=== PATIENT | female | born 2000 | race Caucasian/White ===

== ENCOUNTER 2019-08-16 14:03 | Outpatient (CLI) | payer BC, SELFPAY ==
--- NOTE | ~2019-08-16 | US_ITS ---
US breast BI complete DATE: 08/16/2019 14:43 INDICATION: Patient feels lumps all over both breasts. TECHNIQUE: Real-time imaging of both complete breasts COMPARISON: None FINDINGS: No suspicious mass or shadowing of either breast is evident. No cysts are identified. IMPRESSION: BI-RADS Category 1: Negative Recommendation: Routine mammographic screening beginning at age 40 unless indicated earlier due to pa tient complaints, physical findings or breast cancer risk factors Reviewed, dictated and finalized at [facility]. Reviewed, dictated and finalized at location [facility]. IMPRESSION: BI-RADS Category 1: Negative Recommendation: Routine mammographic screening beginning at age 40 unless indic ated earlier due to patient complaints, physical findings or breast cancer risk factors
== END 2019-08-16 14:04 | disposition home or self-care (01) ==
PROVIDERS: PCP Obstetrics & Gynecology; Visit Provider Nurse Practitioner Obstetrics & Gynecology
DX: N63.0 Unspecified lump in unspecified breast (principal); N64.4 Mastodynia
CPT/HCPCS: 76641

== ENCOUNTER 2021-08-10 22:06 | Emergency (ER) | payer BC, SELFPAY | END 2021-08-10 23:14 | disposition left against medical advice (07) | PROVIDERS: PCP Obstetrics & Gynecology | DX: Z53.21 Procedure and treatment not carried out due to patient leaving prior to being seen by health care provider (principal) | CPT/HCPCS: 99199 ==

== ENCOUNTER 2022-03-29 09:01 | Outpatient (CLI) | payer BC, SELFPAY ==
--- NOTE | ~2022-03-29 | US_ITS ---
EXAMINATION: US OB transvaginal DATE: 03/29/2022 09:33 INDICATION: First trimester dating TECHNIQUE: Real-time pelvic transabdominal and transvaginal ultrasound was performed. COMPARISON: None. FINDINGS: The uterus measures 8.8 x 5.9 x 6 cm. There is an intrauterine gestational sac. A yolk sac is identified. heart motion is identified measuring 162 beats per minute (bpm) by M-mode Doppl er. The crown rump length measures 1.4 cm, which correlates with an estimated gestational age o f 7 weeks and 5 day(s) (+/-) 5 day(s). The left ovary is not visualized however no left adnexal abnormality is seen. The right ovary measure s 2.8 x 2.5 x 2 cm. There is normal vascular flow in the right ovary. There is no free fluid in the p sophia. IMPRESSION: 1. Live intrauterine with an estimated gestational age of 7 weeks and 5 day(s) (+/-) 5 day( s) and an estimated delivery date of 11/10/2022. Reviewed, dictated and finalized at location [facility]. [facility] IMPRESSION: 1. Live intrauterine with an estimated gestational age of 7 weeks and 5 day(s) (+/-) 5 day(s) and an estimated delivery date of 11/10/2022.
== END 2022-03-29 09:02 ==
PROVIDERS: PCP Family Medicine; Visit Provider Obstetrics & Gynecology Gynecology
DX: Z36.87 Encounter for antenatal screening for uncertain dates (principal); Z3A.01 Less than 8 weeks gestation of pregnancy
CPT/HCPCS: 76817

== ENCOUNTER 2022-06-04 12:06 | Emergency (ER) | payer OTHER, SELFPAY ==
[2022-06-04 12:16] VITALS: BP 122/70; PULSE 99; RESP 20; TEMP 36.4; O2SAT 100
--- NOTE | 2022-06-04 12:52 | ED.GENADULT ---
HPI - General Adult General Chief complaint: Upper Respiratory Infection Stated complaint: Cough Time Seen by Provider: 06/04/22 12:35 History of Present Illness HPI narrative: Patient is a 22-year-old female who presents ER with concerns for COVID. She has had runny nose with cough for the last week. Associate with sore throat. Her son has had similar symptoms. They found out that a close contact of theirs at daycare who gives her child rides is COVID-positive so no other nervous about having COVID. Patient has not been vaccinated for COVID-19. She is unsure if she is ever had it as she has not tested herself. No fevers or chills. Occasional posttussive emesis. Patient is 18 weeks and is seen by the [facility]. She has had no complications with her . No lower abdominal pain or vaginal bleeding. No urinary symptoms. Related Data Home Medications Medication Instructions Recorded Confirmed ferrous sulfate 325 mg (65 mg 325 mg PO DAILY 02/01/21 02/01/21 iron) tablet (Feosol) Allergies Allergy/AdvReac Type Severity Reaction Status Date / Time No Known Allergies Allergy Verified 06/04/22 12:36 Review of Systems Constitutional: Constitutional: Denies chills and Denies fever(s) ENT: Reports nasal congestion and Reports sore throat Respiratory: Respiratory: Reports cough, Denies dyspnea and Denies wheezing Gastrointestinal: Gastrointestinal: Denies abdominal pain, Denies nausea and Denies vomiting Comments: Positive posttussive emesis Genitourinary: Genitourinary: Denies abnormal vaginal bleeding, Denies nocturia and Denies dysuria [facility] Past Medical History Medical History (Updated 06/04/22 @ 13:33 by Darien Beard MD) Anemia BMI 27.0-27.9,adult Bruising tendency Encounter to establish care Tobacco abuse Social History Social History (System 05/24/21 @ 12:29 by Estela Jordan) Smoking packs per day: 0.5 Smoking cigarettes per day: 10.0 Years smoked: 1 Smoking pack-years: 0.50 Smoking status: Current every day smoker Tobacco type: cigarettes Alcohol intake: current Substance use: never Substance use type: does not use Exam Narrative: GENERAL: Well-appearing, well-nourished, and in no acute distress. HEAD: Normocephalic, atraumatic. EYES: PERRL and EOMI. ENT: Mucous membranes moist. Normal-appearing posterior oropharynx without erythema, tonsillar hypertrophy, or uvular shift. TMs normal bilaterally and ear canals free of cerumen. NECK: Supple. EXTREMITIES: Normal range of motion. No edema. NEURO: Alert and oriented x3. PSYCH: Normal mood and affect. Course Course Emergency Course: Patient resting comfortably. Informed of results. Discharge home. Vital Signs Vital signs: Vital Signs Temperature 97.6 F 06/04/22 12:16 Pulse Rate 99 06/04/22 12:16 Respiratory Rate 20 06/04/22 12:16 Blood Pressure 122/70 06/04/22 12:16 Pulse Oximetry 100 06/04/22 12:16 Oxygen Delivery Room Air 06/04/22 12:16 Temperature 97.6 F 06/04/22 12:16 Pulse Rate 99 06/04/22 12:16 Respiratory Rate 20 06/04/22 12:16 Blood Pressure 122/70 06/04/22 12:16 Pulse Oximetry 100 06/04/22 12:16 Oxygen Delivery Room Air 06/04/22 12:38 Medical Decision Making Vital Signs Vital Signs: Vital Signs Temperature 97.6 F 06/04/22 12:16 Pulse Rate 99 06/04/22 12:16 Respiratory Rate 20 06/04/22 12:16 Blood Pressure 122/70 06/04/22 12:16 Pulse Oximetry 100 06/04/22 12:16 Oxygen Delivery Room Air 06/04/22 12:16 Temperature 97.6 F 06/04/22 12:16 Pulse Rate 99 06/04/22 12:16 Respiratory Rate 20 06/04/22 12:16 Blood Pressure 122/70 06/04/22 12:16 Pulse Oximetry 100 06/04/22 12:16 Oxygen Delivery Room Air 06/04/22 12:38 Lab Data Labs: Lab Results 06/04/22 Range/Units 12:21 Influenza A (RT-PCR) Negative (Negative) Influenza B (RT-PCR) Negative (Negative)
[2022-06-04 13:24] LABS: Influenza A QL RT-PCR Negative (Negative); Influenza B QL RT-PCR Negative (Negative); SARS-CoV-2 RNA PCR Negative
[2022-06-04 14:08] VITALS: BP 115/72; PULSE 91; RESP 16; O2SAT 100
== END 2022-06-04 14:08 | disposition home or self-care (01) ==
PROVIDERS: General Practice; Emergency Provider Emergency Medicine; PCP Family Medicine
DX: J06.9 Acute upper respiratory infection, unspecified (principal); D64.9 Anemia, unspecified; F17.210 Nicotine dependence, cigarettes, uncomplicated; Z20.822 Contact with and (suspected) exposure to COVID-19
CPT/HCPCS: 87636; 99283

== ENCOUNTER 2022-06-11 08:40 | Observation (INO) | payer BC, OTHER, SELFPAY ==
[2022-06-11 09:02] VITALS: BP 111/70; PULSE 93
[2022-06-11 09:16] VITALS: BP 90/42; PULSE 89
[2022-06-11 10:20] LABS: Appearance Urine Turbid (Clear); Bacteria Urine 3+ /hpf; Bilirubin Urine Negative (Negative); Blood Urine Negative (Negative); Color Urine Dark Yellow (Yellow); Glucose Urine UA Negative (Negative); Ketones Urine Trace mg/dL (Negative); Leukocyte Esterase Ur Trace LEU/UL (Negative); Need Manual Microscopic Reviewed; Nitrate Urine Negative (Negative); Protein Urine 1+ mg/dL (Negative); Specific Grav Ur 1.024 (1.001-1.035); Squamous Epithelial Cell Urine Many /hpf (Few); WBC Urine 21-50 /hpf; pH Urine 6.5 (5.0-9.0)
[2022-06-11 10:28] LABS: Add Urine Microscopic? YES
[2022-06-11 10:55] VITALS: TEMP 36.2
[2022-06-11] MEDS: cefTRIAXone 1 GM VIAL IM (11:35)
--- NOTE | 2022-07-04 08:32 | PM.OBTRLD ---
OB - Triage/Final Diagnosis Visit Information Comments/Additional reasons for admission: I have assessed the risk for this patient, Guillermina Ferrera, and determined that she would benefit from observation care. Evaluation Laboratory results: Laboratory Tests 06/11/22 09:26 Urine Color Dark yellow Urine Appearance Turbid H Urine pH 6.5 Ur Specific [place] 1.024 Urine Protein 1+ H Urine Glucose (UA) Negative Urine Ketones Trace Ur Blood (Man) Negative Urine Nitrate Negative Urine Bilirubin Negative Urine Urobilinogen 1.0 Add Ur Microanalysis Reviewed Leukocyte Esterase Rfl Trace H Urine RBC 3-5 H Urine WBC 21-50 Ur Squamous Epith Cells Many H Urine Bacteria 3+ H Urine Casts 11-20 Final Diagnosis (1) False labor: Code(s): O47.9 - False labor, unspecified Status: Acute
== END 2022-06-11 11:55 | disposition home or self-care (01) ==
PROVIDERS: Admitting Provider Obstetrics & Gynecology; PCP Family Medicine; Visit Provider Obstetrics & Gynecology
DX: O47.02 False labor before 37 completed weeks of gestation, second trimester (principal); O26.892 Other specified pregnancy related conditions, second trimester; R10.9 Unspecified abdominal pain; Z3A.19 19 weeks gestation of pregnancy
CPT/HCPCS: 81001; 87086; 96372; G0378; G0379; J0696

== ENCOUNTER 2022-10-04 20:17 | Observation (INO) | payer OTHER, SELFPAY ==
[2022-10-04 20:33] VITALS: BP 121/70; PULSE 98
[2022-10-04 20:50] LABS: Appearance Urine Cloudy (Clear); Bacteria Urine 1+ /hpf; Bilirubin Urine Negative (Negative); Blood Urine Negative (Negative); Color Urine Dark Yellow (Yellow); Glucose Urine UA Negative (Negative); Ketones Urine Trace mg/dL (Negative); Leukocyte Esterase Ur Negative LEU/UL (Negative); Nitrate Urine Negative (Negative); Non Pathogenic Casts 0-2; Protein Urine Trace mg/dL (Negative); RBC Urine 0-2 /hpf (0-2); Specific Grav Ur 1.024 (1.001-1.035); Squamous Epithelial Cell Urine Many /hpf (Few); WBC Urine 0-5 /hpf
[2022-10-04 20:56] LABS: Add Urine Microscopic? YES
[2022-10-04 21:10] VITALS: BMI 36.1
--- NOTE | 2022-10-04 21:10 | OBADM ---
This patient, Guillermina Ferrera, admitted to the OB room OB Post 115 for observation. Patient/family oriented to hospital policies and general routines including ID bracelet, bed and alarms, visiting hours, pain management, procedures, bathroom and other care routines, personal items, smoking policy, room service/diet, and visiting hours. Patient/Family are encouraged to report perceived risks to care and to ask questions if they do not understand what they are told or what they should do.
--- NOTE | 2022-11-03 18:24 | P.PNOB_ITS ---
OB - Triage/Final Diagnosis Visit Information Comments/Additional reasons for admission: I have assessed the risk for this patient, Guillermina Ferrera, and determined that she would benefit from observation care. Evaluation Laboratory results: Laboratory Tests 10/04/22 20:39 Urine Color Dark yellow Urine Appearance Cloudy H Urine pH 6.0 Ur Specific [place] 1.024 Urine Protein Trace Urine Glucose (UA) Negative Urine Ketones Trace H Ur Blood (Man) Negative Urine Nitrate Negative Urine Bilirubin Negative Urine Urobilinogen 1.0 Leukocyte Esterase Rfl Negative Urine RBC 0-2 Urine WBC 0-5 Ur Squamous Epith Cells Many H Urine Bacteria 1+ H Urine Casts 0-2 Final Diagnosis (1) False labor: Code(s): O47.9 - False labor, unspecified Status: Acute
== END 2022-10-04 21:15 | disposition home or self-care (01) ==
PROVIDERS: Admitting Provider Obstetrics & Gynecology; PCP Family Medicine; Visit Provider Obstetrics & Gynecology
DX: O47.03 False labor before 37 completed weeks of gestation, third trimester (principal); Z3A.35 35 weeks gestation of pregnancy
CPT/HCPCS: 81001; G0378; G0379

== ENCOUNTER 2022-10-24 23:22 | Inpatient (IN) | payer OTHER, SELFPAY ==
[2022-10-25] VITALS (50 sets, daily range): BP systolic 88–132; BP diastolic 51–95; PULSE 63–107; RESP 12–18; TEMP 36.3–37.1; O2SAT 86–100; BMI 37.9
--- NOTE | 2022-10-25 00:38 | LDADM ---
This patient, Guillermina Ferrera, was admitted to Labor/Delivery/Recovery 105 on 10/24/22 at 23:22. Plans for labor, pain management and were discussed with patient. Patient/family oriented to hospital policies and general routines including ID bracelet, bed and alarms, visiting hours, pain management, procedures, bathroom and other care routines, personal items, smoking policy, room service/diet and guest tray routines, infant security routines, and visiting hours. Patient/Family are encouraged to report perceived risks to care and to ask questions if they do not understand what they are told or what they should do. See OBIX for further documentation.
[2022-10-25 02:42] LABS: Basophils Absolute Auto 0.1 K/mm3 (0.0-0.1); Basophils Percent Auto 0.4 % (0.2-1.2); Eosinophils Absolute Auto 0.1 K/mm3 (0-0.3); Eosinophils Percent Auto 0.6 % (0-4.4); Hematocrit 30.3 % (37.0-47.0); Hemoglobin 9.7 g/dL (12.0-15.0); Immature Granulocyte Absolute 0.09 K/mm3 (0.00-0.031); Immature Granulocyte Percent A 0.8 % (0-0.5); Lymphocytes Absolute Auto 3.03 K/mm3 (0.9-3.2); Lymphocytes Percent Auto 25.9 % (18.3-44.2); Mean Corpuscular Hemoglobin 24.8 pg (26-34); Mean Corpuscular Volume 77.5 fl (80-100); Mean Platelet Volume 10.9 fl (7.4-10.4); Monocytes Absolute Auto 0.6 K/mm3 (0.1-0.6); Monocytes Percent Auto 5.5 % (2.6-8.5); Neutrophils Absolute Auto 7.8 K/mm3 (1.3-6.7); Neutrophils Percent Auto 66.8 % (45.5-73.1); Platelet Count Result 331 k/mm3 (150-375); Red Blood Count 3.91 M/mm3 (4.2-5.4); Red Cell Distribution Width 14.1 % (11.5-14.5); White Blood Count 11.7 K/mm3 (4.5-10.0)
[2022-10-25 02:46] LABS: HIV 1/2 Ab P24 Ag Result Negative (Negative)
[2022-10-25] MEDS: LACTATED RINGERS 1,000 ML 125 ML IV CONT (04:13)
[2022-10-25] MEDS: OXYTOCIN 30 UNITS/NS 500 ML 30 UNITS/500 ML BAG IV CONT (04:14)
[2022-10-25 04:20] LABS: Hepatitis B Surface Antigen Negative (Negative)
[2022-10-25] MEDS: ACETAMINOPHEN 500 MG TABLET 1000 MG PO (09:56)
--- NOTE | 2022-10-25 10:29 | WPDANESEPPF ---
Anes - Initial Pre Proc Eval Procedure: Operation Date: 10/25/22 11:00 Proposed Procedures p Section - Helene Handy MD Date/Time: 10/25/22 10:29 Surgeon: Helene Handy MD Pre Op Diagnosis: Leaking Fluid Patient Data Age: 22 Gender: F Height: 1.57 m Weight: 94 kg Last Vital Signs Temp 36.6 C 10/25/22 07:00 Pulse 92 10/25/22 09:25 BP 109/69 10/25/22 09:25 O2 Del Method Room Air 10/25/22 00:36 Allergies Allergy/AdvReac Type Severity Reaction Status Date / Time No Known Allergies Allergy Verified 06/04/22 12:36 Home Medications Medication Instructions Recorded Confirmed Type ferrous sulfate 325 mg (65 mg 325 mg PO DAILY 02/01/21 10/25/22 History iron) tablet (Feosol) Laboratory Tests 10/25/22 10/25/22 10/25/22 01:31 02:36 08:04 WBC 11.7 H K/mm3 (4.5-10.0) RBC 3.91 L M/mm3 (4.2-5.4) Hgb 9.7 L g/dL (12.0-15.0) Hct 30.3 L % (37.0-47.0) MCV 77.5 L fl (80-100) MCH 24.8 L pg (26-34) MCHC 32.0 g/dl (32-36) RDW 14.1 % (11.5-14.5) Plt Count 331 k/mm3 (150-375) MPV 10.9 H fl (7.4-10.4) Immature Gran % (Auto) 0.8 H % (0-0.5) Neut % (Auto) 66.8 % (45.5-73.1) Lymph % (Auto) 25.9 % (18.3-44.2) [place] % (Auto) 5.5 % (2.6-8.5) Eos % (Auto) 0.6 % (0-4.4) Baso % (Auto) 0.4 % (0.2-1.2) Lymph # (Auto) 3.03 K/mm3 (0.9-3.2) [place] # (Auto) 0.6 K/mm3 (0.1-0.6) Eos # (Auto) 0.1 K/mm3 (0-0.3) Baso # (Auto) 0.1 K/mm3 (0.0-0.1) Abs Immat Gran (auto) 0.09 H K/mm3 (0.00-0.031) Absolute Neuts (auto) 7.8 H K/mm3 (1.3-6.7) Absolute Nucleated RBC 0.0 K/mm3 (0.0-0.012) Nucleated RBC % 0.0 % (0.0-0.2) RPR Pending Hep Bs Antigen Negative (Negative) HIV 1&2 Ab/P24 Ag 4thGn Negative (Negative) Rubella IgG Antibody 9.0 L IU/ML (10 - ) Blood Type B Positive Antibody Screen Negative Patient hx anesthesia problems: none Family hx anesthesia problems: none Results Review: All pre-operative results and documents have been reviewed as part of the pre-operative evaluation. [facility] Past Medical History Medical History (Updated 07/04/22 @ 08:32 by Helene Handy MD) Anemia BMI 27.0-27.9,adult Bruising tendency Encounter to establish care Tobacco abuse Social History Social History (System 05/24/21 @ 12:29 by Estela Jordan) Smoking packs per day: 0.5 Smoking cigarettes per day: 10.0 Years smoked: 1 Smoking pack-years: 0.50 Smoking status: Former smoker Tobacco type: cigarettes Alcohol intake: current Substance use: never Substance use type: does not use Lack of Transportation: No Lack of Food: Never True Current Housing: I Have Housing Concerned About Future Housing: No Difficulty Paying Gas/Electric Bills: No Difficulty Paying for Meds: No Currently Unemployed: No Education: High School Diploma/GED Difficulty w/ Childcare or Family Care: No Spiritual care concerns: No Anes - Eval Final PreProcedure Day of Procedure 10/25/22 10:29 Patient weight: obese Heart: regular rate and rhythm Lungs: clear to auscultation and normal air movement Airway: Mallampati scale class II Neurological: alert and oriented Last oral intake: >/= 8 hours ASA classification: II Emergent: no Anesthetic plan: proceed Anesthesia type and monitoring: regional spinal and standard monitoring Results Review: All pre-operative results and documents have been reviewed as part of the pre-operative evaluation. Informed Consent: The patient's anesthetic plan and its attendant risks and benefits were discussed with the patient/family/POA. Questions were solicited and answers provided to the satisfaction of the patient/
[2022-10-25 11:02] LABS: Rapid Plasma Reagin Non-Reactive (NonReactive)
--- NOTE | 2022-10-25 11:53 | WPDHPUPDATE1 ---
History and Physical Update Update Date/Time: 10/25/22 11:53 History and Physical has been reviewed, including an updated exam of the patient. There are NO changes in the patient's condition. Risks, benefits, and alternatives have been discussed and questions answered. Patient agrees to proceed with procedure.
--- NOTE | 2022-10-25 11:54 | PM.IMHP ---
H&P: [facility] History of Present Illness Date/Time: 10/25/22 11:54 Chief Complaint: Term Narrative: this patient is a 22-year-old female with a previous delivery and a term gestation with ruptured membranes. Agreed to perform repeat delivery. She understands the procedure. She understands the risks. She understands that injuries may occur that result in hospitalization, more surgery, and severe illness. She understands there is chance of hemorrhage and infection. She denies any nausea, vomiting, fever, chills. She denies any chest pain or shortness of breath. Review of Systems Review of Systems: All systems reviewed & are unremarkable except as noted in HPI and below Constitutional: Constitutional: Denies chills, Denies fatigue, Denies fever(s) and Denies weakness Eyes: Eyes: Denies blurry vision, Denies change in vision, Denies loss of peripheral vision, Denies loss of vision, Denies other visual disturbances and Denies eye pain ENT: Denies vertigo, Denies dizziness, Denies hearing loss, Denies mouth pain, Denies nasal obstruction, Denies neck mass and Denies neck pain Cardiovascular: Cardiovascular: Denies chest pain, Denies diaphoresis, Denies syncope, Denies leg edema and Denies dyspnea Respiratory: Respiratory: Denies chest congestion, Denies cough, Denies hemoptysis, Denies dyspnea and Denies wheezing Gastrointestinal: Gastrointestinal: Denies abdominal pain, Denies constipation, Denies diarrhea, Denies nausea and Denies vomiting Genitourinary: Genitourinary: Denies hematuria, Denies change in libido, Denies nocturia, Denies genital lesions, Denies flank pain and Denies urinary urgency Musculoskeletal: Musculoskeletal: Denies abnormal gait, Denies back pain, Denies myalgias, Denies arthralgias, Denies joint swelling, Denies muscle weakness and Denies neck pain Integumentary/Breasts: Skin/Breast: Denies swelling, Denies breast pain, Denies breast mass, Denies dry skin, Denies nipple discharge, Denies unusual bruising and Denies jaundice Neurologic: Denies Neuro-related abnormal movements, Denies Abnormal speech present, Denies abnormal gait, Denies behavioral changes, Denies confusion, Denies vertigo, Denies dizziness, Denies syncope, Denies loss of vision, Denies memory loss, Denies convulsions and Denies weakness Psychiatric: Psychiatric: Denies abnormal sleep pattern, Denies behavioral changes, Denies change in libido, Denies confusion, Denies depression, Denies anhedonia and Denies memory loss Endocrine: Endocrine: Reports no additional endocrine complaints, Denies change in libido and Denies fatigue Hematologic/Lymphatic: Hematologic/Lymphatic: Reports no additional hematologic/lymphatic complaints Allergic/Immunologic: Allergic/Immunologic: Reports no additional allergic/immunologic complaints and Denies wheezing PMFSH Past Medical History Medical History (Updated 10/25/22 @ 11:56 by Helene Handy MD) Anemia BMI 27.0-27.9,adult Bruising tendency Encounter to establish care Tobacco abuse Social History Social History (System 05/24/21 @ 12:29 by Estela Jordan) Smoking packs per day: 0.5 Smoking cigarettes per day: 10.0 Years smoked: 1 Smoking pack-years: 0.50 Smoking status: Former smoker Tobacco type: cigarettes Alcohol intake: current Substance use: never Substance use type: does not use Lack of Transportation: No Lack of Food: Never True Current Housing: I Have Housing Concerned About Future Housing: No Difficulty Paying Gas/Electric Bills: No Difficulty Paying for Meds: No Currently Unemployed: No Education: High School Diploma/GED Difficulty w/ Childcare or Family Care: No Spiritual care concerns: No Meds Home Medications and Allergies Home Medications Medication Instructions Recorded Confirmed Type ferrous sulfate 325 mg (65 mg 325 mg PO DAILY 02/01/21 10/25/22 History iron) tablet (Feosol) Allergies Allergy/
[2022-10-25] MEDS: ceFAZolin 2 GM/D5W 50 ML 2 GM/50 ML BAG IVPB (11:55)
--- NOTE | 2022-10-25 12:47 | WPDHPUPDATE1 ---
History and Physical Update Update Date/Time: 10/25/22 12:47 History and Physical has been reviewed, including an updated exam of the patient. There are NO changes in the patient's condition. Risks, benefits, and alternatives have been discussed and questions answered. Patient agrees to proceed with procedure.
--- NOTE | 2022-10-25 12:54 | W.PM.PROC2 ---
Procedure Note - Detailed Date of Procedure 10/25/22 Pre-op Diagnosis Leaking Fluid, previous Post-op Diagnosis Same Procedure Performed Low-transverse section Surgeon Helene Handy MD Anesthesia Spinal Findings Normal gestational maternal anatomy, average size , normal Apgars. Description of Procedure The patient was taken the operating room. She was prepped and draped in dorsal supine position with a leftward tilt. This was done after spinal anesthetic was applied. A low-transverse skin incision was made and carried down till of the fascia with the knife. The fascial incision was made with the knife. The fascial incision was extended laterally with [place] scissors. The fascia was tented upward superiorly and inferiorly the rectus muscles were dissected off bluntly. The rectus muscles were the midline. The preperitoneal fat and peritoneum were dissected open bluntly at the superior aspect of the rectus muscles. The peritoneal incision was extended superior and inferior with good position of bladder. The uterine incision was made with a scalpel down to the level of the amniotic cavity. The amniotic cavity was entered bluntly. The was delivered. The cord was clamped and cut and the was handed off to waiting pediatric staff. Cord bloods were obtained. The placenta was removed manually. The uterus was exteriorized. The uterus was cleared of all clots, debris and membranes. The uterus was closed in 0 Vicryl running lock fashion. An imbricating over a was placed along the incision line as well. The uterus was returned to the abdomen. The gutters were cleared of all clots and debris. The fascia was closed with 0 Vicryl running fashion. The subcutaneous tissue was irrigated pinpoint bleeders were cauterized. The skin was closed with subcuticular absorbable adams. The skin incision line was covered with glue. The patient tolerated the procedure well. She has taken recovery room in stable condition. Sponge lap and needle counts were correct x2. Estimated Blood Loss 410 Complications No immediate complications Condition Stable Disposition PACU
[2022-10-25] MEDS: DOCUSATE SODIUM 100 MG CAPSULE PO (17:47)
[2022-10-25] MEDS: HYDROcodone/acetaminophen (*CRX) 5-325 MG TABLET 1 TAB PO (17:48)
[2022-10-25] MEDS: DEXTROSE 5%/0.45% SOD CHL 1,000 ML 125 ML IV CONT (17:48)
[2022-10-25] MEDS: KETOROLAC 30 MG/ML VIAL (*BKC) IV PUSH (19:58)
[2022-10-26 00:30] VITALS: BP 102/61; PULSE 76; RESP 15; TEMP 36.6; O2SAT 99
[2022-10-26] MEDS: ACETAMINOPHEN 325 MG TABLET 650 MG PO ×3 (04:01→16:43)
[2022-10-26] MEDS: IBUPROFEN 600 MG TABLET PO ×4 (04:01→23:45)
[2022-10-26 04:27] VITALS: BP 127/77; PULSE 80; RESP 18; TEMP 36.7; O2SAT 100
[2022-10-26 05:28] LABS: Basophils Percent Auto 0.3 % (0.2-1.2); Eosinophils Percent Auto 0.3 % (0-4.4); Hemoglobin 8.4 g/dL (12.0-15.0); Immature Granulocyte Absolute 0.08 K/mm3 (0.00-0.031); Immature Granulocyte Percent A 0.7 % (0-0.5); Lymphocytes Absolute Auto 3.08 K/mm3 (0.9-3.2); Lymphocytes Percent Auto 25.1 % (18.3-44.2); Mean Corpuscular Hemoglobin 23.4 pg (26-34); Mean Platelet Volume 10.3 fl (7.4-10.4); Monocytes Absolute Auto 0.8 K/mm3 (0.1-0.6); Monocytes Percent Auto 6.1 % (2.6-8.5); Neutrophils Absolute Auto 8.3 K/mm3 (1.3-6.7); Neutrophils Percent Auto 67.5 % (45.5-73.1); Platelet Count Result 252 k/mm3 (150-375); Red Blood Count 3.59 M/mm3 (4.2-5.4); Red Cell Distribution Width 13.2 % (11.5-14.5); White Blood Count 12.3 K/mm3 (4.5-10.0)
[2022-10-26 08:00] VITALS: BP 122/63; PULSE 73; RESP 18; TEMP 36.8
--- NOTE | 2022-10-26 09:17 | P.PNOB_ITS ---
OB - PN: Subj Subjective Date/time seen: 10/26/22 09:17 Patient comments: no complaints baby status: doing well and nursing well Narrative: POD 1 from primary CS. Doing well. Normal lochia. Eating, ambulating, judd out. OB - PN: Obj Data Labs 10/26/22 03:47 Labs: Laboratory Results - last 24 hr 10/25/22 10/25/22 10/26/22 01:31 08:04 03:47 WBC 12.3 H RBC 3.59 L Hgb 8.4 L Hct 28.0 L MCV 78.0 L MCH 23.4 L D MCHC 30.0 L RDW 13.2 Plt Count 252 MPV 10.3 Immature Gran % (Auto) 0.7 H Neut % (Auto) 67.5 Lymph % (Auto) 25.1 [place] % (Auto) 6.1 Eos % (Auto) 0.3 Baso % (Auto) 0.3 Lymph # (Auto) 3.08 [place] # (Auto) 0.8 H Eos # (Auto) 0.0 Baso # (Auto) 0.0 Abs Immat Gran (auto) 0.08 H Absolute Neuts (auto) 8.3 H Absolute Nucleated RBC 0.0 Nucleated RBC % 0.0 RPR Non-reactive Antibody Screen Negative OB - PN A/P Plan day: 1 Plan: routine care Comments: consented for circumcision Time Spent With Patient Time: Total time spent is greater than 50% in coordination of care (as documented) at patient's floor/unit and/or counseling patient: Exam Narrative: NAD abdomen soft, appropriately tender, incision bandaged Extremities nontender with 1+ edema
[2022-10-26] MEDS: POLYSACCHARIDE IRON COMPLEX 150 MG CAPSULE PO ×2 (10:00→16:43)
[2022-10-26] MEDS: DOCUSATE SODIUM 100 MG CAPSULE PO ×2 (10:02→16:43)
[2022-10-26] MEDS: MULTIVIT/MIN/PREN/FOL AC/IRON TABLET 1 TAB PO (10:04)
--- NOTE | 2022-10-26 14:39 | WPDANLDPN2 ---
Anes-Prog Note L&D Date/Time: 10/26/22 14:39 Comfortable throughout: section Neuraxial method: spinal Epidural/Spinal procedure site: clean & non-tender Neuro status: Neuro function grossly intact. Cardiovascular status: normal Respiratory status: normal Airway patency: baseline Mental status: baseline Post-Op hydration status: normal Vital Signs: Last Vital Signs Temp 98.3 F 10/26/22 08:00 Pulse 73 10/26/22 08:00 Resp 18 10/26/22 08:00 BP 122/63 10/26/22 08:00 Pulse Ox 100 10/26/22 04:27 O2 Del Method Room Air 10/26/22 04:27 Pain score (VAS): 2 I/O: Intake & Output 10/25/22 10/26/22 10/26/22 23:59 07:59 15:59 Intake Total 1500 Output Total 100 2400 750 Balance -100 -900 -750 Post-procedural complaints: none Patient feedback: Patient satisfied with anesthetic care.
--- NOTE | 2022-10-26 14:39 | WPDANLDNPN2 ---
Anes-Prog Note L&D-Neuraxial Date/Time: 10/26/22 14:39 Neuraxial medications: intrathecal PF morphine Opiod-related complaints: none Patient feedback: Patient satisfied with post-operative pain management.
[2022-10-26 19:44] VITALS: BP 126/80; PULSE 76; RESP 18; TEMP 36.8; O2SAT 99
[2022-10-26] MEDS: HYDROcodone/acetaminophen (*CRX) 5-325 MG TABLET 1 TAB PO ×2 (20:12→23:45)
[2022-10-27] MEDS: HYDROcodone/acetaminophen (*CRX) 5-325 MG TABLET 1 TAB PO ×3 (02:54→11:32)
[2022-10-27] MEDS: IBUPROFEN 600 MG TABLET PO (07:15)
[2022-10-27] MEDS: DOCUSATE SODIUM 100 MG CAPSULE PO (07:15)
[2022-10-27] MEDS: POLYSACCHARIDE IRON COMPLEX 150 MG CAPSULE PO (07:15)
[2022-10-27 08:30] VITALS: BP 117/81; PULSE 80; RESP 14; TEMP 36.5; O2SAT 100
--- NOTE | 2022-10-27 10:08 | PM.OBPNVD ---
OB - PN: Subj Subjective Date/time seen: 10/27/22 10:08 Patient comments: no complaints and pain well controlled baby status: doing well and nursing well Narrative: woudl like DC home today OB - PN: Obj Data Labs 10/26/22 03:47 OB - PN A/P Time Spent With Patient Time: Total time spent is greater than 50% in coordination of care (as documented) at patient's floor/unit and/or counseling patient: Exam Narrative: NAD abdomen soft, appropriately tender, incision CDI Extremities nontender with 1+ edema
--- NOTE | 2022-10-27 10:12 | PM.OBDSVD ---
DS: Admitting Diagnosis Discharge Date 10/27/22 Admitting Diagnosis term IUP, prior CS DS: Discharge Diagnosis Discharge Diagnosis (1) delivery delivered: Code(s): O82 - Encounter for delivery without indication Status: Acute OB - DS: Summary Hospital Course Hospital Course: Guillermina was admitted with SROM. She planned a TOLAC but then changed her mind and desired a repeat CS. Her delivery and course were uncomplicated and she was discharged home on POD 2 in stable condition. OB Procedures : Ultrasound OB Procedures Intrapartum: OB Procedures: : None Peripartum Data Delivery Method: Section Procedures: Procedures Operation Date: 10/25/22 11:00 Actual Procedure Side Surgeon p Section Bilateral Helene Handy MD repeat low transverse section complications: none Status at Discharge Functional status at discharge: independent ambulation Time Spent with Patient Time attestation: Total time spent providing and/or coordinating discharge services: Exam Narrative: NAD abdomen soft, appropriately tender, incision CDI Discharge Plan Discharge Attending physician on discharge: Bethanie Yo Discharging Clinician: Bethanie Yo Anticipated Discharge Date/Time: 10/27/22 10:09 Patient Disposition: Home, Self-Care Activity: may shower, may drive after 2 weeks and pelvic rest Diet: regular Patient Instructions: Antibiotic Form Stand Alone Forms: General Discharge Information Follow-up/Referrals: Helene Handy MD [Physician] - 1 Week Bethanie Yo MD [Physician] - Discharge Medications: New oxycodone-acetaminophen 5-325 mg tablet 1 tablet PO Q4-6H PRN (Reason: pain) Qty: 30 0RF ibuprofen 600 mg Tablet 600 mg PO Q6H PRN (Reason: Cramping) Qty: 60 0RF docusate sodium 100 mg Capsule 100 mg PO BID PRN (Reason: constipation) Qty: 60 0RF Continued ferrous sulfate [Feosol] 325 mg (65 mg iron) tablet 325 mg PO DAILY Date of admission: 10/24/22 23:22 Primary Care Provider: Glenn Abraham Admitting Provider: Helene Handy Attending physician on admission: Helene Handy Condition: Stable
[2022-10-27] MEDS: MEASLES,MUMPS,RUBELLA VACCINE 0.5 ML VIAL SUB-Q (11:33)
[2022-10-28 16:03] VITALS: BP 139/79; PULSE 98; RESP 18; TEMP 37.3; O2SAT 99
== END 2022-10-27 14:54 | disposition home or self-care (01) | DRG 540 ==
LOC: ANHOB2 10-27 10:55 → ANHLDR 10-29 08:21 → ANHOB2 10-29 08:21
PROVIDERS: Admitting Provider Obstetrics & Gynecology; PCP Family Medicine; Visit Provider Obstetrics & Gynecology
PROC: 10D00Z1 Extraction of Products of Conception, Low, Open Approach (ICD-10-PCS; CPT 59514; principal; 2022-10-25 11:00)
DX: O34.219 Maternal care for unspecified type scar from previous cesarean delivery (principal); Z37.0 Single live birth; Z87.891 Personal history of nicotine dependence; Z3A.38 38 weeks gestation of pregnancy
CPT/HCPCS: 36415; 85025; 86592; 86703; 86762; 86850; 86900; 86901; 87340; 90710; A9270; G0432; J0690; J1885; J2274; J2590; J7120

== ENCOUNTER 2023-01-26 15:49 | Emergency (ER) | payer OTHER, SELFPAY ==
[2023-01-26 15:51] VITALS: BP 149/79; PULSE 79; RESP 20; TEMP 36.6; O2SAT 100
[2023-01-26 17:06] VITALS: BP 126/81; PULSE 72; RESP 18; O2SAT 100
[2023-01-26 17:15] LABS: Appearance Urine Cloudy (Clear); Bacteria Urine None Seen /hpf; Bilirubin Urine Negative (Negative); Blood Urine Negative (Negative); Color Urine Yellow (Yellow); Glucose Urine UA Negative (Negative); Ketones Urine Negative (Negative); Leukocyte Esterase Ur Negative LEU/UL (Negative); Nitrate Urine Negative (Negative); Non Pathogenic Casts 0-2; Protein Urine Negative (Negative); RBC Urine 0-2 /hpf (0-2); Squamous Epithelial Cell Urine Few /hpf (Few); WBC Urine 0-5 /hpf; pH Urine 7.5 (5.0-9.0)
--- NOTE | 2023-01-26 17:17 | ED.GENADULT ---
HPI - General Adult General Chief complaint: Abdominal Pain Stated complaint: abd carmping Time Seen by Provider: 01/26/23 16:08 History of Present Illness HPI narrative: Patient is a 22-year-old female who presents ER with abdominal pain/cramping. Began in the lower abdomen. Radiated upwards and into the back. Associate with nausea. No vomiting. No fevers chills or sweats. Denies urinary symptoms. No history of kidney stone. She has had no diarrhea. Related Data Home Medications Medication Instructions Recorded Confirmed ferrous sulfate 325 mg (65 mg 325 mg PO DAILY 02/01/21 10/25/22 iron) tablet (Feosol) Allergies Allergy/AdvReac Type Severity Reaction Status Date / Time No Known Allergies Allergy Verified 06/04/22 12:36 Review of Systems Review of Systems: All systems reviewed & are unremarkable except as noted in HPI and below Constitutional: Constitutional: Denies chills, Denies fatigue and Denies fever(s) ENT: Denies nasal congestion and Denies sore throat Gastrointestinal: Gastrointestinal: Reports abdominal pain, Denies heartburn, Denies diarrhea, Reports nausea and Denies vomiting Genitourinary: Genitourinary: Denies nocturia, Denies dysuria and Denies flank pain PMFSH Past Medical History Medical History (Updated 01/26/23 @ 18:26 by Darien Beard MD) Anemia BMI 27.0-27.9,adult Bruising tendency Encounter to establish care Tobacco abuse Social History Social History (System 05/24/21 @ 12:29 by Estela Jordan) Smoking packs per day: 0.5 Smoking cigarettes per day: 10.0 Years smoked: 1 Smoking pack-years: 0.50 Smoking status: Former smoker Tobacco type: cigarettes Alcohol intake: current Substance use: never Substance use type: does not use Lack of Transportation: No Lack of Food: Never True Current Housing: I Have Housing Concerned About Future Housing: No Difficulty Paying Gas/Electric Bills: No Difficulty Paying for Meds: No Currently Unemployed: No Education: High School Diploma/GED Difficulty w/ Childcare or Family Care: No Spiritual care concerns: No Exam Narrative: GENERAL: Well-appearing, well-nourished, and in no acute distress. HEAD: Normocephalic, atraumatic. ENT: Mucous membranes moist. CHEST: Clear to auscultation. No respiratory distress. HEART: Regular rate and rhythm. Normal peripheral pulses. ABDOMEN: Soft, nontender, nondistended. EXTREMITIES: Normal range of motion. No edema. SKIN: Warm, dry, no rash. NEURO: Alert and oriented x3. PSYCH: Normal mood and affect. Course Course Emergency Course: Patient resting comfortably. Abdominal exam benign. Lab results reassuring. Discharge home. Vital Signs Vital signs: Vital Signs Temperature 98 F 01/26/23 15:51 Pulse Rate 79 01/26/23 15:51 Respiratory Rate 20 01/26/23 15:51 Blood Pressure 149/79 H 01/26/23 15:51 Pulse Oximetry 100 01/26/23 15:51 Oxygen Delivery Room Air 01/26/23 15:51 Temperature 97.9 F 01/26/23 18:01 Pulse Rate 77 01/26/23 18:01 Respiratory Rate 18 01/26/23 18:01 Blood Pressure 112/84 01/26/23 18:01 Pulse Oximetry 100 01/26/23 18:01 Oxygen Delivery Room Air 01/26/23 15:51 Medical Decision Making Vital Signs Vital Signs: Vital Signs Temperature 98 F 01/26/23 15:51 Pulse Rate 79 01/26/23 15:51 Respiratory Rate 20 01/26/23 15:51 Blood Pressure 149/79 H 01/26/23 15:51 Pulse Oximetry 100 01/26/23 15:51 Oxygen Delivery Room Air 01/26/23 15:51 Temperature 97.9 F 01/26/23 18:01 Pulse Rate 77 01/26/23 18:01 Respiratory Rate 18 01/26/23 18:01 Blood Pressure 112/84 01/26/23 18:01 Pulse Oximetry 100 01/26/23 18:01 Oxygen Delivery Room Air 01/26/23 15:51 Lab Data 01/26/23 17:25 01/26/23 17:25 Labs: Lab Results 01/26/23 01/26/23 Range/Units 17:05 17:25 WBC 10.4 H (4.5-10.0) K/mm3 RBC 4.49
[2023-01-26 17:21] LABS: Add Urine Microscopic? YES
[2023-01-26 17:32] LABS: Basophils Percent Auto 0.4 % (0.2-1.2); Eosinophils Percent Auto 0.2 % (0-4.4); Hematocrit 35.7 % (37.0-47.0); Hemoglobin 11.4 g/dL (12.0-15.0); Immature Granulocyte Absolute 0.02 K/mm3 (0.00-0.031); Immature Granulocyte Percent A 0.2 % (0-0.5); Lymphocytes Percent Auto 20.2 % (18.3-44.2); Mean Corpuscular HGB Conc 31.9 g/dl (32-36); Mean Corpuscular Hemoglobin 25.4 pg (26-34); Mean Corpuscular Volume 79.5 fl (80-100); Mean Platelet Volume 9.6 fl (7.4-10.4); Monocytes Absolute Auto 0.4 K/mm3 (0.1-0.6); Monocytes Percent Auto 3.7 % (2.6-8.5); Neutrophils Absolute Auto 7.9 K/mm3 (1.3-6.7); Neutrophils Percent Auto 75.3 % (45.5-73.1); Platelet Count Result 278 k/mm3 (150-375); Red Blood Count 4.49 M/mm3 (4.2-5.4); Red Cell Distribution Width 13.7 % (11.5-14.5); White Blood Count 10.4 K/mm3 (4.5-10.0)
[2023-01-26 17:40] LABS: Alanine Aminotransferase 21 U/L (6-35); Albumin Level 4.5 g/dL (3.5-5.1); Alkaline Phosphatase 79 U/L (38-126); Anion Gap 10 mmol/L (8-16); Aspartate Amino Transferase 31 U/L (14-36); Bilirubin,Total 0.5 mg/dL (0.2-1.3); Blood Urea Nitrogen 14 mg/dL (7-17); Calcium 9.5 mg/dL (8.4-10.2); Carbon Dioxide 26 mmol/L (22-30); Chloride 103 mmol/L (98-107); Estimated CRCL calculation 100 ml/min; Estimated Glomerular Filt Rate > 60; Glucose 94 mg/dL (65-110); Lipase 112 U/L (23-300); Potassium 3.8 mmol/L (3.4-5.0); Sodium 139 mmol/L (137-145)
[2023-01-26 18:01] VITALS: BP 112/84; PULSE 77; RESP 18; TEMP 36.6; O2SAT 100
[2023-01-26 18:58] VITALS: BP 108/70; PULSE 88; RESP 18; TEMP 36.8; O2SAT 100
== END 2023-01-26 19:01 | disposition home or self-care (01) ==
PROVIDERS: Emergency Provider Emergency Medicine; PCP Family Medicine
DX: R10.84 Generalized abdominal pain (principal); D64.9 Anemia, unspecified; Z87.891 Personal history of nicotine dependence
CPT/HCPCS: 36415; 80053; 81001; 83690; 85025; 99283

== ENCOUNTER 2023-04-22 09:48 | Emergency (ER) | payer OTHER, SELFPAY ==
--- NOTE | ~2023-04-22 | US_ITS ---
EXAMINATION: US abdomen limited DATE: 04/22/2023 12:15 INDICATION: Epigastric pain. TECHNIQUE: Multiple grayscale and Doppler ultrasound images of the abdomen were obtained. COMPARISON: None FINDINGS: The pancreatic head and body are normal in appearance. The pancreatic tail is not visualized. Liver has normal echogenicity and contour, with a smooth surface. No liver lesion identified. No intrahepat ic biliary duct dilation suspected. Portal venous flow was seen in the hepatopetal, normal direction and has normal Doppler waveform. Multiple echogenic and shadowing gallstones in the dependent aspect of the normal-appearing gallbladder. Common bile duct measures 2 mm in maximal diameter which is norm al. Sonographic Celis sign was reported as positive by the fertilizer processing supervisor. IMPRESSION: 1. Cholelithiasis with positive sonographic Celis's sign but with normal-appearing gallbladder and n o biliary ductal dilation. This is equivocal for acute cholecystitis. Consider HIDA scan for further evaluation. Reviewed, dictated and finalized at location A. L ANIMAL VETERINARIAN IMPRESSION: 1. Cholelithiasis with positive sonographic Celis's sign but with normal-appea ring gallbladder and no biliary ductal dilation. This is equivocal for acute ch olecystitis. Consider HIDA scan for further evaluation.
[2023-04-22 09:55] VITALS: BP 140/81; PULSE 88; RESP 16; TEMP 36.6; O2SAT 99
[2023-04-22 10:23] LABS: Basophils Percent Auto 0.4 % (0.2-1.2); Eosinophils Percent Auto 0.8 % (0-4.4); Hemoglobin 11.8 g/dL (12.0-15.0); Immature Granulocyte Absolute 0.01 K/mm3 (0.00-0.031); Immature Granulocyte Percent A 0.2 % (0-0.5); Lymphocytes Percent Auto 40.3 % (18.3-44.2); Mean Corpuscular HGB Conc 31.9 g/dl (32-36); Mean Corpuscular Hemoglobin 25.6 pg (26-34); Mean Corpuscular Volume 80.3 fl (80-100); Mean Platelet Volume 9.9 fl (7.4-10.4); Monocytes Absolute Auto 0.3 K/mm3 (0.1-0.6); Monocytes Percent Auto 5.2 % (2.6-8.5); Neutrophils Absolute Auto 2.6 K/mm3 (1.3-6.7); Neutrophils Percent Auto 53.1 % (45.5-73.1); Platelet Count Result 263 k/mm3 (150-375); Red Blood Count 4.61 M/mm3 (4.2-5.4); Red Cell Distribution Width 12.8 % (11.5-14.5)
[2023-04-22 10:29] LABS: Alanine Aminotransferase 16 U/L (6-35); Albumin Level 4.3 g/dL (3.5-5.1); Alkaline Phosphatase 60 U/L (38-126); Anion Gap 7 mmol/L (8-16); Aspartate Amino Transferase 21 U/L (14-36); Bilirubin,Total 0.4 mg/dL (0.2-1.3); Blood Urea Nitrogen 22 mg/dL (7-17); Calcium 9.4 mg/dL (8.4-10.2); Carbon Dioxide 25 mmol/L (22-30); Chloride 106 mmol/L (98-107); Estimated Glomerular Filt Rate > 60; Glucose 99 mg/dL (65-110); Lipase 129 U/L (23-300); Potassium 4.1 mmol/L (3.4-5.0); Sodium 138 mmol/L (137-145)
[2023-04-22 10:32] VITALS: BP 158/91; PULSE 91; RESP 16; TEMP 36.8; O2SAT 100
[2023-04-22 10:32] LABS: Appearance Urine Cloudy (Clear); Bacteria Urine 1+ /hpf; Bilirubin Urine Negative (Negative); Blood Urine Negative (Negative); Color Urine Dark Yellow (Yellow); Glucose Urine UA Negative (Negative); Ketones Urine Trace mg/dL (Negative); Leukocyte Esterase Ur Negative LEU/UL (Negative); Nitrate Urine Negative (Negative); Non Pathogenic Casts 0-2; Protein Urine Negative (Negative); RBC Urine 0-2 /hpf (0-2); Specific Grav Ur 1.032 (1.001-1.035); Squamous Epithelial Cell Urine Many /hpf (Few); WBC Urine 0-5 /hpf
[2023-04-22 10:33] LABS: Add Urine Microscopic? YES
--- NOTE | 2023-04-22 10:52 | ED.GENADULT ---
[facility] - General Adult General Chief complaint: Abdominal Pain Stated complaint: Abdomen Time Seen by Provider: 04/22/23 10:42 Source: patient Mode of arrival: ambulatory Limitations: no limitations History of Present Illness HPI narrative: This is a 23-year-old female who presents to the ED with chief complaint of epigastric and left upper quadrant pain ongoing for several weeks intermittently. Reports that is specifically worsened when eating spicy foods which she does tend the a lot of. States the pain will radiate to the back at times. She has but 2 months . Denies fevers, chills, nausea, vomiting, urinary symptoms, problems with bowel movements. Related Data Home Medications Medication Instructions Recorded Confirmed ferrous sulfate 325 mg (65 mg 325 mg PO DAILY 02/01/21 10/25/22 iron) tablet (Feosol) Allergies Allergy/AdvReac Type Severity Reaction Status Date / Time No Known Allergies Allergy Verified 04/22/23 10:53 Review of Systems Review of Systems: All systems as dictated in [facility] Past Medical History Medical History (Updated 04/22/23 @ 12:46 by Luca Serrano PA-C) Anemia BMI 27.0-27.9,adult Bruising tendency Encounter to establish care Tobacco abuse Social History Social History (System 05/24/21 @ 12:29 by Estela Jordan) Smoking packs per day: 0.5 Smoking cigarettes per day: 10.0 Years smoked: 1 Smoking pack-years: 0.50 Smoking status: Former smoker Tobacco type: cigarettes Alcohol intake: current Substance use: never Substance use type: does not use Lack of Transportation: No Lack of Food: Never True Current Housing: I Have Housing Concerned About Future Housing: No Difficulty Paying Gas/Electric Bills: No Difficulty Paying for Meds: No Currently Unemployed: No Education: High School Diploma/GED Difficulty w/ Childcare or Family Care: No Spiritual care concerns: No Exam Narrative: GENERAL: Well-appearing, well-nourished, and in no acute distress. HEAD: Normocephalic, atraumatic. EYES: PERRLA and EOMI. ENT: Nares clear, no rhinorrhea or epistaxis. Mucous membranes moist. Oropharynx without tonsillar hypertrophy exudate or other lesions. NECK: Supple. No adenopathy or masses. CHEST: No respiratory distress. Clear to auscultation. No wheezes rales or rhonchi HEART: Regular rate and rhythm. No murmur heard. Normal peripheral pulses. ABDOMEN: Mild tenderness to the epigastrium and left upper quadrant. Negative Celis sign. Negative McBurney's point. Soft, nondistended, normal active bowel sounds. MSK: Normal range of motion. No edema. SKIN: Warm, dry, no rash. NEURO: Alert and oriented x3. No focal deficits. PSYCH: Normal mood and affect. Course Vital Signs Vital signs: Vital Signs Temperature 97.9 F 04/22/23 09:55 Pulse Rate 88 04/22/23 09:55 Respiratory Rate 16 04/22/23 09:55 Blood Pressure 140/81 04/22/23 09:55 Pulse Oximetry 99 04/22/23 09:55 Oxygen Delivery Room Air 04/22/23 09:55 Temperature 98.2 F 04/22/23 10:32 Pulse Rate 86 04/22/23 12:56 Respiratory Rate 16 04/22/23 12:56 Blood Pressure 130/74 04/22/23 12:56 Pulse Oximetry 98 04/22/23 12:56 Oxygen Delivery Room Air 04/22/23 09:55 Medical Decision Making MDM Narrative Medical decision making narrative: This is a 23-year-old female who presents to the ED with chief complaint of epigastric abdominal pain for last several weeks. Worsened with spicy foods. Vitals are normal. Exam does show some epigastric and left upper quadrant tenderness. Minimal right upper quadrant tenderness. Lab work is relatively unremarkable. Normal white count. Slightly elevated BUN at 22 but otherwise the comprehensive is normal. Urinalysis shows continued evidence of very slight dehydration but no UTI. RUQ U/S: 1. Cholelithiasis with positive sonographic Celis's sign but with normal-appearing gallbladder
--- NOTE | 2023-04-22 11:14 | PC.NURSE ---
Pt to U/S via w/c at this time.
[2023-04-22] MEDS: FAMOTIDINE 20 MG/2 ML VIAL IV PUSH (11:44)
[2023-04-22] MEDS: BELLADONNA ALK/PHENOB ELIX 10 ML, MAG HYDROX/ALUMINUM HYD/SIMETH 30 ML, LIDOCAINE HCL 2... PO (11:47)
[2023-04-22 12:56] VITALS: BP 130/74; PULSE 86; RESP 16; O2SAT 98
== END 2023-04-22 13:00 | disposition home or self-care (01) ==
PROVIDERS: Emergency Medicine; Emergency Provider Physician Assistant; PCP Family Medicine
DX: R10.13 Epigastric pain (principal); D64.9 Anemia, unspecified; Z87.891 Personal history of nicotine dependence
CPT/HCPCS: 36415; 76705; 80053; 81001; 81025; 83690; 85025; 96374; 99284; A9270

== ENCOUNTER 2023-05-13 16:38 | Emergency (ER) | payer OTHER, SELFPAY ==
[2023-05-13 16:50] VITALS: BP 129/84; PULSE 68; RESP 18; O2SAT 99
[2023-05-13 16:51] VITALS: TEMP 35.9
--- NOTE | 2023-05-13 17:29 | PC.NURSE ---
patient left from waiting room without being seen. states she wants to try an urgent care. advised to return if needed
== END 2023-05-13 17:29 | disposition left against medical advice (07) ==
LOC: ANHED 17:35
PROVIDERS: PCP Family Medicine
DX: R10.9 Unspecified abdominal pain (principal)
CPT/HCPCS: 99199

== ENCOUNTER 2023-05-23 09:12 | Outpatient (CLI) | payer OTHER, SELFPAY ==
--- NOTE | ~2023-05-23 | NM_ITS ---
EXAMINATION: NM hepatobiliary wo pharm DATE: 05/23/2023 14:28 INDICATION: Recurrent abdominal pain COMPARISON: None. TECHNIQUE: 5.2 mCi Tc-99m mebrofenin (Choletec) was administered intravenously. Scintigraphic images of the abdomen were obtained for one hour. Additional 1 hour and 10 minute and 4 hour delayed scinti grams were obtained. FINDINGS: There is normal clearance of radiotracer from the blood pool. There is homogeneous tracer u ptake by the liver. Activity progresses to the common bile duct by 20 minutes and within the duodenu m at 25 minutes with progressive accumulation of bowel activity on the subsequent imaging including o n the 4 hour delayed images. No evident gallbladder activity which would be consistent with acute cho lecystitis IMPRESSION: 1. No evident accumulation of activity in the gallbladder which be consistent with acute calculous c holecystitis. Reviewed, dictated and finalized at location A. RAM ARRANGER IMPRESSION: 1. No evident accumulation of activity in the gallbladder which be consistent with acute calculous cholecystitis.
== END 2023-05-23 09:13 | disposition home or self-care (01) ==
LOC: ANHIMG 09:16
PROVIDERS: PCP Family Medicine; Visit Provider Family Medicine
DX: R10.9 Unspecified abdominal pain (principal)
CPT/HCPCS: 78226; A9537

== ENCOUNTER 2023-06-13 10:10 | Outpatient (CLI) | payer OTHER, SELFPAY ==
[2023-06-13 10:49] LABS: Alanine Aminotransferase 14 U/L (6-35); Albumin Level 4.6 g/dL (3.5-5.1); Alkaline Phosphatase 55 U/L (38-126); Amylase 68 U/L (30-110); Aspartate Amino Transferase 19 U/L (14-36); Bilirubin,Total 0.6 mg/dL (0.2-1.3); Lipase 101 U/L (23-300)
== END 2023-06-13 10:11 | disposition home or self-care (01) ==
LOC: ANHSURGERY 10:13
PROVIDERS: PCP Family Medicine; Visit Provider Surgery
DX: K80.10 Calculus of gallbladder with chronic cholecystitis without obstruction (principal); Z01.818 Encounter for other preprocedural examination
CPT/HCPCS: 36415; 80076; 82150; 83690

== ENCOUNTER 2023-06-18 02:09 | Day surgery (SDC) | payer OTHER, SELFPAY ==
[2023-06-12 14:54] VITALS: BMI 34.7
--- NOTE | 2023-06-12 14:58 | PC.NURSE ---
Report to the Outpatient Waiting Room, entrance under the green pavilion located off [facility], at time 12:00 on date 06/18/23. Planned Procedure Time: 2:00. Time changes happen often and if your time is changed the preop area will call you the afternoon before. - You and your visitor will be asked to self-screen and do not enter if you have any COVID symptoms. - A mask is optional within the hospital at this time. Patients may have clear liquids (water, carbonated beverages, clear teas, apple juice) until 3 hours prior to surgery (11:00) with a maximum of 20 ounces. - No food from midnight until time of surgery Take the following medications with a SIP of water the morning of surgery: NONE DO NOT STOP ANY OF YOUR OTHER PRESCRIPTION MEDICATIONS PRIOR TO SURGERY ?EXCEPT THE FOLLOWING Medications to discontinue per physician: VITAMINS/SUPPLEMENTS Date to take last dose: 07/15/23 Please no make-up, nail egyptian, hairspray, perfume, deodorant, or body powder the day of surgery. No jewelry (including any body piercings) or valuables the day of surgery, leave them at home. Please take a shower or bath the night before, or the morning of, surgery with an antibacterial soap. Wear comfortable, loose fitting clothing. - Jewelry must be removed prior to entering the operating room. Rings and piercings that are not removed may be cut off. - The hospital will not accept responsibility for valuables. - Please leave all valuables, including medications, at home the day of surgery. If you are going home after surgery, a licensed laundry route driver must drive you home. - NO public transportation without another adult if you receive anesthesia. - We recommend that an adult stay with you for 24 hours following discharge. - We also recommend that you do not drive, make important decision, drink alcoholic beverages, or take any drugs that were not prescribed by your health care provider for at least 24 hours after your discharge time. Follow any additional instructions given to you from your surgeon. If you or anyone in your household have experienced Covid symptoms in the past week, please notify your surgeon or the nurse liaison at the phone number below for possible testing. Telephone instructions given to CRUZITO COOL and asked if any additional questions and then verbalized understanding. Patient advised to call surgeon office or pre surgery nurse liaison [phone] if any additional questions.
[2023-06-18] VITALS (9 sets, daily range): BP systolic 96–137; BP diastolic 50–92; PULSE 54–84; RESP 14–20; TEMP 36.2–36.4; O2SAT 97–100; BMI 35.0
[2023-06-18] MEDS: ACETAMINOPHEN 500 MG TABLET 1000 MG PO (12:15)
[2023-06-18] MEDS: KETOROLAC 15 MG/ML VIAL (*BKC) IV PUSH (12:15)
[2023-06-18] MEDS: LACTATED RINGERS 1,000 ML 30 ML IV CONT ×3 (12:15→14:57)
--- NOTE | 2023-06-18 13:38 | WPDHPUPDATE1 ---
History and Physical Update Update Date/Time: 06/18/23 13:38 History and Physical has been reviewed, including an updated exam of the patient. There are NO changes in the patient's condition. Risks, benefits, and alternatives have been discussed and questions answered. Patient agrees to proceed with procedure.
--- NOTE | 2023-06-18 13:40 | WPDANESEPPF ---
Anes - Initial Pre Proc Eval Procedure: Operation Date: 06/18/23 13:30 Proposed Procedures p Laparoscopic Cholecystectomy - Huber Piper MD Date/Time: 06/18/23 13:40 Surgeon: Huber Piper MD Pre Op Diagnosis: chronic cholecystitis with stones Patient Data Age: 23 Gender: F Height: 1.57 m Weight: 86.9 kg Last Vital Signs Temp 97.6 F 06/18/23 12:17 Pulse 78 06/18/23 12:17 Resp 16 06/18/23 12:17 BP 117/76 06/18/23 12:17 Pulse Ox 99 06/18/23 12:17 Allergies Allergy/AdvReac Type Severity Reaction Status Date / Time No Known Allergies Allergy Verified 06/12/23 14:54 Home Medications Medication Instructions Recorded Confirmed Type ferrous sulfate 325 mg (65 mg 325 mg PO DAILY 02/01/21 06/18/23 History iron) tablet (Feosol) lansoprazole 30 mg capsule,delayed 30 mg PO DAILY #30 caps 05/15/23 06/18/23 Rx release (Prevacid) Patient hx anesthesia problems: none Family hx anesthesia problems: none Results Review: All pre-operative results and documents have been reviewed as part of the pre-operative evaluation. [facility] Past Medical History Medical History (Updated 06/12/23 @ 10:59 by Melia Jackson [facility]) Abdominal pain HIDA scan on 05/23/2023 reveals no gallbladder activity consistent with acalculous cholecystitis. 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 Alcohol intake: never Substance use: never Substance use type: does not use Lack of Transportation: No Lack of Food: Never True Current Housing: I Have Housing Concerned About Future Housing: No Difficulty Paying Gas/Electric Bills: No Difficulty Paying for Meds: No Currently Unemployed: No Education: High School Diploma/GED Difficulty w/ Childcare or Family Care: No Living arrangements: with family Spiritual care concerns: No Anes - Eval Final PreProcedure Day of Procedure 06/18/23 13:40 Patient weight: obese Heart: regular rate and rhythm Lungs: clear to auscultation Airway: Mallampati scale class III Neurological: alert and oriented Last oral intake: >/= 8 hours ASA classification: II Emergent: no Anesthetic plan: proceed Anesthesia type and monitoring: general and standard monitoring Results Review: All pre-operative results and documents have been reviewed as part of the pre-operative evaluation. Informed Consent: The patient's anesthetic plan and its attendant risks and benefits were discussed with the patient/family/POA. Questions were solicited and answers provided to the satisfaction of the patient/family/POA.
--- NOTE | 2023-06-18 13:58 | W.PM.PROC2 ---
Procedure Note - Detailed Date of Procedure 06/18/23 Pre-op Diagnosis chronic cholecystitis with stones Post-op Diagnosis Same Procedure Performed Laparoscopic cholecystectomy Surgeon Huber Piper MD Fitness Technician Jenae Ling [facility] Anesthesia General and Local Indications Patient has had postprandial right upper quadrant abdominal pain and nausea. Her ultrasound showed gallstones. She had a HIDA scan that showed nonvisualization of the gallbladder consistent with cholecystitis. She is taken to surgery now for laparoscopic cholecystectomy Findings Chronic inflammation was noted, gallstones were noted in the gallbladder, no biliary ductal dilatation was appreciated, no liver abnormalities noted Description of Procedure Patient was taken to surgery and induced into general anesthesia. The abdomen is prepped and draped. Varies needle was used to insufflate had the epigastric port site. After adequate insufflation, an applied Medical 5 mm trocar was placed. We then placed the remaining trocars under direct visualization. The epigastric trocar was replaced with a 10 11 trocar. We then decompressed the gallbladder with laparoscopic aspirator. The cholecystotomy was closed with a Vicryl endoloop. The gallbladder was then freed from adhesions and retracted anterosuperior yearly. Dissection in the cholecystohepatic triangle was carried out. The cystic duct and cystic artery were carefully dissected. The gallbladder was dissected off the liver at its lower 3rd. Critical view was achieved. We then securely clipped and divided the cystic duct and cystic artery. The gallbladder was retracted and we continued to dissect all the remaining attachments of the gallbladder to the liver. With the gallbladder completely free, it was placed in an Endo-Catch bag and retrieved through the 10 11 epigastric trocar. We then replaced the trocar reviewed the right upper quadrant. Some additional cautery was used. We irrigated and suctioned the area and all looked good. We then evacuated CO2 and removed the trocar sleeves. Skin wounds were closed with subcuticular 4-0 Monocryl skin suture. The wounds were dressed with Exofin surgical adhesive give. Patient was awakened and taken to recovery in good condition. She new counts were correct x2. Estimated Blood Loss -5 Drains No Packing No Pathology Yes (Gallbladder) Complications No immediate complications Condition Stable [facility] Billing Surgery - Charge Forward: Surgery Billing (Laparoscopic cholecystectomy)
[2023-06-18] MEDS: ceFAZolin 2 GM/D5W 50 ML 2 GM/50 ML BAG IVPB (13:59)
[2023-06-18] MEDS: BUPIVACAINE/EPINEPHRINE 0.5% 50 ML VIAL 30 ML INFILTRATE (14:08)
[2023-06-18] MEDS: fentaNYL CITRATE INJ (*CRX) 100 MCG/2 ML VIAL 25 MCG IV PUSH ×2 (15:25→15:33)
== END 2023-06-18 17:00 | disposition home or self-care (01) ==
PROVIDERS: PCP Family Medicine; Visit Provider Surgery
PROC: 0FT44ZZ Resection of Gallbladder, Percutaneous Endoscopic Approach (ICD-10-PCS; CPT 47562; principal; 2023-06-18 13:30)
DX: K80.10 Calculus of gallbladder with chronic cholecystitis without obstruction (principal); D64.9 Anemia, unspecified; Z87.891 Personal history of nicotine dependence; E66.9 Obesity, unspecified; Z68.35 Body mass index [BMI] 35.0-35.9, adult
CPT/HCPCS: 47562; 88304; A9270; J0330; J0690; J1100; J1885; J2250; J2405; J2704; J3010; J7120

== ENCOUNTER 2024-04-24 13:54 | Emergency (ER) | payer OTHER, SELFPAY ==
[2024-04-24 13:55] VITALS: BP 126/91; PULSE 86; RESP 18; TEMP 36.7; O2SAT 100
--- OUTSIDE RECORDS SUMMARY | 2024-04-24 13:56 | XMS_ITS | Data Portability ---
Author Organization [facility] [place] Address [address] [place] [place] [address] [place] [address] Care Team Providers Care Stitcher Hand Name Role Phone KIMBERLY VASQUEZ Primary Care Provider [phone] Assessment Encounter Date Assessment Date Assessment LastModified by Organization Details LastModified Time 01/13/2024 01/13/2024 Patients UA showed trace leuks. Per MM Patient to have Macrobid [email or web address] Not available 01/13/2024 11:07:01 Plan of Treatment Reminders Order Date Submit Date Provider Last Modified By Organization Details Last Modified Time Details Appointments U/S OB SNEAK PEAK 2024 01:30P M ULTRASOUND Not available Not available Not available OB SCREEN 2024 02:00P M KEREN PLUMMER MD Not available Not available Not available Lab pregnan cy test, urine 2023 024 [email or web address] [place], [address], [place], [address], 12/11/2023 16:18:17 urinaly sis, dipstic k 2023 024 [email or web address] [place], [address], [place], [address], 01/13/2024 11:07:02 pregnan cy test, urine 2024 025 [email or web address] [place], [address], [place], [address], 04/07/2024 12:56:13 Referral gastroe nterolo gist referra l [address] [facility], [address], [id number], [place], [address], 06/09/2023 14:26:38 Procedures None recorde d. Surgeries None recorde d. Imaging None recorde d. Medication Orders Valtrex 1 gram tablet 2023 024 [email or web address] [facility][id number], [address], [place], [id number], 01/21/2024 11:55:37 Vitamin D2 1,250 mcg (50,000 unit) capsule 2023 025 [facility] #[id number], [address], [place], [id number], 04/07/2024 12:03:33 Loestri n Fe 04/05 (28-Day ) 1 mg-20 mcg (21)/75 mg (7) tablet 2023 024 [email or web address] [facility] #[id number], [address], [place], [id number], 12/11/2023 16:18:16 Macrobi d 100 mg capsule 2023 024 [facility] #[id number], [address], [place], [id number], 01/21/2024 11:55:41 metroni dazole 500 mg tablet 2023 025 [facility] #60587, [address], [place], [id number], 04/07/2024 12:03:33 Valtrex 1 gram tablet 2024 025 [id number], [address], [place], [id number], 04/07/2024 12:20:59 Patient TargetsNo targets recorded. Patient InstructionsNo instructions recorded. Reason for Referral Sql Developer Referral for Abdominal pain Referring Physician: Briana Izaguirre, GENETIC COUNSELLOR, Encounter Date: 04/16/2023 Results Created Date Observation Date Name Description Value Unit Range Abnormal Flag Note LastModifiedBy Organization Detail LastModifiedTime 04/10/19 24 04/10/2023 VAGIN ITIS/ VAGIN OSIS, DNA PROBE akin sp. detection, direct probe Negati ve negati ve Not Available [facility] (Lab) [address], [place], [address], 04/11/2023 12:35:24 04/10/19 24 04/10/2023 VAGIN ITIS/ VAGIN OSIS, DNA PROBE gardnerella vag. detection, direct probe Negati ve negati ve Not Available [facility] (Lab) [address] , [place], [address], 04/11/2023 12:35:24 04/10/19 24 04/10/2023 VAGIN ITIS/ VAGIN OSIS, DNA PROBE trichomonas vag. detection, direct probe Negati ve negati ve Not Available [facility] (Lab) [address] , [place], [address], 04/11/2023 12:35:24 04/16/19 24 04/16/2023 HERPE S SUBTY PE(HS V1/HS V2) RT-PC R, ONESW AB herpes subtype (hsv-1, hsv-2) PCR Positi ve (HSV-2 ) abnormal Swab- 1 Vag Cerv HSV-1 :Nega tive HSV-2 :Posi tive. Not Available [facility] (Lab) [address], [place], [address], 04/19/2023 12:04:10 11/28/19 24 11/28/2023 CBC W/DIF F WBC 7.5 10'3/ uL 3.5-10 .5 Not Available [facility] (Lab) [address], [place], [address], 11/29/2023 06:06:37 11/28/19 24 11/28/2023 CBC W/DIF F RBC 4.60 10'6/ uL (based on docume nted legal sex) 3.80-5 .20 Not Available [facility] (Lab) [address], [place], [address], 11/29/2023 06:06:37 11/28/19 24 11/28/2023 CBC W/DIF F HGB 12.0 g/dL (based on docume nted legal sex) 11.6-1 5.4 Not Available [facility] (Lab) [address], [place], [address], 11/29/2023 06:06:37 11/28/19 24 11/28/2023 CBC W/DIF F HCT 38.8 % (based on docume nted legal sex) 34.0-4 5.0 Not Available [facility] (Lab) [address], [place], [address], 11/29/2023 06:06:37 11/28/19 24 11/28/2023 CBC W/DIF F MCV 84.3 fL 80.0-9 9.0 Not Available [facility] (Lab) [address], [place], [address], 11/29/2023 06:06:37 11/28/19 24 11/28/2023 CBC W/DIF F MCH 26.1 pg 27.0-3 4.0 low Not Available [facility] (Lab) [address], [place], [address], 11/29/2023 06:06:37 11/28/19 24 11/28/2023 CBC W/DIF F MCHC 30.9 g/dL 32.0-3 5.5 low Not Available [facility] (Lab) [address] [facility], [place], [address], 11/29/2023 06:06:37 11/28/19 24 11/28/2023 CBC W/DIF F RDW 12.7 % 11.0-1 5.0 Not Available [facility] (Lab) [address] [facility], [place], [address], 11/29/2023 06:06:37 11/28/19 24 11/28/2023 CBC W/DIF F plt 264 10'3/ uL 150-40 0 Not Available [facility] (Lab) [address] [facility], [place], [address], 11/29/2023 06:06:37 11/28/19 24 11/28/2023 CBC W/DIF F MPV 10.9 fL 8.8-12 .1 Not Available [facility] (Lab) [address] [facility], [place], [address], 11/29/2023 06:06:37 11/28/19 24 11/28/2023 CBC W/DIF F NRBC's 0.0 % 0.0 Not Available [facility] (Lab) [address] [facility], [place], [address], 11/29/2023 06:06:37 11/28/19 24 11/28/2023 CBC W/DIF F absolute NRBCs 0.0 10'3/ uL no refere nce range establ ished Not Available [facility] (Lab) [address] [facility], [place], [address], 11/29/2023 06:06:37 11/28/19 24 11/28/2023 CBC W/DIF F neutrophils 61.6 % 34.0-7 3.0 Not Available [facility] (Lab) [address] [facility], [place], [address], 11/29/2023 06:06:37 11/28/19 24 11/28/2023 CBC W/DIF F lymphocytes 32.3 % 15.0-5 0.0 Not Available [facility] (Lab) [address] [facility], [place], [address], 11/29/2023 06:06:37 11/28/19 24 11/28/2023 CBC W/DIF F monocytes 4.8 % 1.0-15 .0 Not Available [facility] (Lab) [address] [facility], [place], [address], 11/29/2023 06:06:37 11/28/19 24 11/28/2023 CBC W/DIF F eosinophils 0.3 % 0.0-8. 0 Not Available [facility] (Lab) [address] [facility], [place], [address], 11/29/2023 06:06:37 11/28/19 24 11/28/2023 CBC W/DIF F basophils 0.7 % 0.0-2. 0 Not Available [facility] (Lab) [address] [facility], [place], [address], 11/29/2023 06:06:37 11/28/1911/28/2023 CBC W/DIF F immature granulocytes 0.3 % no define d refere nce range Not Available [facility] (Lab) [address] [facility], [place], [address], 11/29/2023 06:06:37 11/28/1911/28/2023 CBC W/DIF F absolute neutrophils 4.6 10'3/ uL 1.5-8. 0 Not Available [facility] (Lab) [address] [facility], [place], [address], 11/29/2023 06:06:37 11/28/19 24 11/28/2023 CBC W/DIF F absolute lymphocytes 2.4 10'3/ uL 1.0-4. 0 Not Available [facility] (Lab) [address] [place], [address], 11/29/2023 06:06:37 11/28/19 24 11/28/2023 CBC W/DIF F absolute monocytes 0.4 10'3/ uL 0.2-1. 0 Not Available [facility] (Lab) [address] [facility], [place], [address], 11/29/2023 06:06:37 11/28/19 24 11/28/2023 CBC W/DIF F absolute eosinophils 0.0 10'3/ uL 0.0-0. 6 Not Available [facility] (Lab) [address] [facility], [place], [address], 11/29/2023 06:06:37 11/28/19 24 11/28/2023 CBC W/DIF F absolute basophils 0.1 10'3/ uL 0.0-0. 3 Not Available [facility] (Lab) [address] [facility], [place], [address], 11/29/2023 06:06:37 11/28/19 24 11/28/2023 CBC W/DIF F absolute immature granulocytes 0.0 10'3/ uL 0.00-0 .10 2023 3:45 AM: P indic ates parti al resul ts on a panel have been relea sed. Addit ional resul ts will follo w. 2023 3:45 AM: This resul t has been final verif ied. No addit ional or be ed resul ts are expec tawnya. Not Available [facility] (Lab) [address] [facility], [place], [address], 11/29/2023 06:06:37 11/28/19 24 11/28/2023 LIPID PANEL ,AMA (LDL- CALC) total cholesterol 120 mg/dL 0-[address] [facility] (Lab) [address] [facility], [place], [address], 11/29/2023 06:06:38 11/28/19 24 11/28/2023 LIPID PANEL ,AMA (LDL- CALC) triglyceride s 121 mg/dL 0-150 NCEP Refer ence Value s for Trigl yceri grace: More l: <150 mg/dL Borde rline High: 150 - 199 mg/dL High: 200 - 499 mg/dL Very High: >/= 500 mg/dL Not Available [facility] (Lab) [address] [facility], [place], [address], 11/29/2023 06:06:38 11/28/1911/28/2023 LIPID PANEL ,AMA (LDL- CALC) HDL cholesterol 40 mg/dL >[address] [facility] (Lab) [address] [facility], [place], [address], 11/29/2023 06:06:38 11/28/1911/28/2023 LIPID PANEL ,AMA (LDL- CALC) LDL cholesterol 60 mg/dL 0-99 Cutof f value s recom bruno d by the Natio nal Mere stero l Educa tion Progr am: BASILIO ABLE: Mere stero l <200 mg/dL LDL <100 mg/dL BORDE RLINE : Mere stero l 200-2 39 mg/dL LDL 101-1 59 mg/dL HIGHE R RISK: Mere stero l >240 mg/dL LDL >160 mg/dL , HDL <40 mg/dL Not Available [facility] (Lab) [address] [facility], [place], [address], 11/29/2023 06:06:38 11/28/1911/28/2023 LIPID PANEL ,AMA (LDL- CALC) non-HDL cholesterol 80 mg/dL no refere nce range A reaso nable goal for non-H DL mere stero l is one that is 30 mg/dL highe r than the LDL mere stero l goal. Not Available [facility] (Lab) [address] [place], [address], 11/29/2023 06:06:38 11/28/19 24 11/28/2023 LIPID PANEL ,AMA (LDL- CALC) chol/HDL ratio 3.0 . 0.0-5. 0 On July 09, 2022, [facility] labor atori es be ed the equat ion for calcu latin g estim ated low-d ensit y lipop rotei n-cho leste rol (LDL- C) from the Fried suyapa equat ion to the Jeannie n/Hop gilda equat ion. This new equat ion is only valid for lipid panel s with trigl yceri grace < 400 mg/dL . Studi es have demon strat ed that this new equat ion will impro ve the accur acy of LDL-C , espec ially in scena polanco when LDL-C maciel ntrat ions are relat ively low (< 100 mg/dL ), trigl yceri grace are eleva tawnya, or patie nt is non-f astin g. Refer ences : - Jeannie fair, Gabriel Bauer, Eddie Brice , [facility] cammie renteria, Danny Luque, Danny madrigal, Robert pérez , and Sanya Miguel . 2013. Comp ariso n of a Novel Metho d vs the Fried suyapa Equat ion for Estim ating Low-D ensit y Lipop rotei n Mere stero l Level s from the Stand kathleen Lipid Profi le. TEOFILO: The Journ al of the Ameri can Medic al Assoc iatio n 310 (19): 2060- . - Narinder painting V, Kim J, Marion ar A, Jose Angel M, Kirstin e R, Edel painting E, Lakesha pérez RS, Miguel SR, Jeannie fair SS. Fast ing Versu s Nonfa sting and Low-D ensit y Lipop rotei n Mere stero l Accur acy. Circu latio n. 2017Mar 18;137 (1):1 0-19. Not Available [facility] (Lab) [address], [place], [address], 11/29/2023 06:06:38 11/28/19 24 11/28/2023 CMP(C OMPRE HENSI VE METAB OLIC PANEL ) sodium 140 mmol/ L 133-14 6 Not Available [facility] (Lab) [address], [place], [address], 11/29/2023 06:06:38 11/28/19 24 11/28/2023 CMP(C OMPRE HENSI VE METAB OLIC PANEL ) potassium 3.7 mmol/ L 3.5-5. 1 Not Available [facility] (Lab) [address] [facility], [place], [address], 11/29/2023 06:06:38 11/28/19 24 11/28/2023 CMP(C OMPRE HENSI VE METAB OLIC PANEL ) chloride 102 mmol/ L 98-107 Not Available [facility] (Lab) [address] [facility], [place], [address], 11/29/2023 06:06:38 11/28/19 24 11/28/2023 CMP(C OMPRE HENSI VE METAB OLIC PANEL ) carbon dioxide 29 mmol/ L 21-31 Not Available [facility] (Lab) [address] [facility], [place], [address], 11/29/2023 06:06:38 11/28/19 24 11/28/2023 CMP(C OMPRE HENSI VE METAB OLIC PANEL ) anion gap 9 mmol/ L 4-13 Not Available [facility] (Lab) [address] [facility], [place], [address], 11/29/2023 06:06:38 11/28/19 24 11/28/2023 CMP(C OMPRE HENSI VE METAB OLIC PANEL ) blood urea nitrogen 17 mg/dL 7-25 Not Available [facility] (Lab) [address] [facility], [place], [address], 11/29/2023 06:06:38 11/28/19 24 11/28/2023 CMP(C OMPRE HENSI VE METAB OLIC PANEL ) creatinine 0.97 mg/dL 0.60-1 .30 Not Available [facility] (Lab) [address] [place], [address], 11/29/2023 06:06:38 11/28/19 24 11/28/2023 CMP(C OMPRE HENSI VE METAB OLIC PANEL ) egfrcr (CKD-epi 2020) 84 mL/mi n/1.7 3_m2 >=60 Not Available [facility] (Lab) [address], [place], [address], 11/29/2023 06:06:38 11/28/19 24 11/28/2023 CMP(C OMPRE HENSI VE METAB OLIC PANEL ) calcium 10.0 mg/dL 8.3-10 .5 Not Available [facility] (Lab) [address], [place], [address], 11/29/2023 06:06:38 11/28/19 24 11/28/2023 CMP(C OMPRE HENSI VE METAB OLIC PANEL ) glucose 86 mg/dL 70-100 Not Available [facility] (Lab) [address], [place], [address], 11/29/2023 06:06:38 11/28/19 24 11/28/2023 CMP(C OMPRE HENSI VE METAB OLIC PANEL ) protein, total 7.1 g/dL 6.4-8. 3 Not Available [facility] (Lab) [address] [facility], [place], [address], 11/29/2023 06:06:38 11/28/19 24 11/28/2023 CMP(C OMPRE HENSI VE METAB OLIC PANEL ) albumin 4.7 g/dL 3.5-5. 0 Not Available [facility] (Lab) [address] [facility], [place], [address], 11/29/2023 06:06:38 11/28/19 24 11/28/2023 CMP(C OMPRE HENSI VE METAB OLIC PANEL ) ALT 8 units /L 9-43 low Not Available [facility] (Lab) [address] [facility], [place], [address], 11/29/2023 06:06:38 11/28/19 24 11/28/2023 CMP(C OMPRE HENSI VE METAB OLIC PANEL ) alkaline phosphatase 54 units /L 34-104 Not Available [facility] (Lab) [address] [facility], [place], [address], 11/29/2023 06:06:38 11/28/19 24 11/28/2023 CMP(C OMPRE HENSI VE METAB OLIC PANEL ) AST 11 units /L 13-39 low Not Available [facility] (Lab) [address] [facility], [place], [address], 11/29/2023 06:06:38 11/28/19 24 11/28/2023 CMP(C OMPRE HENSI VE METAB OLIC PANEL ) bilirubin, total 0.7 mg/dL 0.2-1. 2 Not Available [facility] (Lab) [address] [facility], [place], [address], 11/29/2023 06:06:38 11/28/19 24 11/28/2023 TSH, REFLE X FREE T4 TSH 0.62 uIU/m L 0.30-5 .33 Not Available [facility] (Lab) [address] [facility], [place], [address], 11/29/2023 06:06:39 11/28/19 24 11/28/2023 VITAM IN D, 25-OH (TOTA L D2/D3 ) vitamin D, 25-hydroxy, total 24.2 NG/mL 30.0-1 00.0 low Sugge stive of Defic iency : <20 ng/mL Sugge stive of Insuf ficie ncy: 20-29 ng/mL Sugge stive of Suffi cienc y: 30-10 0 ng/mL Sugge stive of Toxic ity: >150 ng/mL Not Available [facility] (Lab) [address] [facility], [place], [address], 11/29/2023 06:06:39 12/11/19 24 12/11/2023 CT/GC AND TRICH OMONA S VAGIN HA (RRNA ), URINE chlamydia trachomatis, PCR Negati ve negati ve Not Available [facility] (Lab) [address] [facility], [place], [address], 12/12/2023 13:26:11 12/11/19 24 12/11/2023 CT/GC AND TRICH OMONA S VAGIN HA (RRNA ), URINE neisseria gonorrhoeae, PCR Negati ve negati ve Not Available [facility] (Lab) [address] [facility], [place], [address], 12/12/2023 13:26:11 12/11/19 24 12/11/2023 CT/GC AND TRICH OMONA S VAGIN HA (RRNA ), URINE trichomonas vaginalis ribosomal RNA (rrna) Negati ve negati ve Not Available [facility] (Lab) [address] [facility], [place], [address], 12/12/2023 13:26:11 12/11/19 24 12/11/2023 pregn lolita test, urine HCG negati ve Not Available [place] [address], [place], [address], 12/11/2023 15:53:55 01/13/20 24 01/13/2024 CULTU RE: URINE result report SEE RESULT S BELOW Test: Cultu re: Urine Speci men Sourc e: Urine - Clean Catch Speci men Type: Urine Speci men Date: 01/12 1143 Resul t Date: 01/14 0540 Resul t Statu s: Final resul t Abnor mal: No Resul ting Lab: [facility] [address] [facility] [address] Tel: CULTU RE ----- ----- ----- --- No growt h in 1 day (dete ction level of 10,00 0 colon ies / ml.) Not Available [facility] (Lab) [address] [facility], [place], [address], 01/15/2024 06:44:17 01/13/20 24 01/13/2024 urina lysis , dipst ick Leukocytes Trace Not Available Rivera banuelos [address], [place], [address], 01/13/2024 11:06:11 01/13/2001/13/2024 urina lysis , dipst ick Nitrite Neg Not Available [place] [address], [place], [address], 01/13/2024 11:06:11 01/13/2001/13/2024 urina lysis , dipst ick Urobilinogen Neg Not Available Tonya frank [address], [place], [address], 01/13/2024 11:06:11 01/13/2001/13/2024 urina lysis , dipst ick Protein Trace Not Available [place] [address], [place], [address], 01/13/2024 11:06:11 01/13/20 24 01/13/2024 urina lysis , dipst ick pH 7 Not Available [place] [address], [place], [address], 01/13/2024 11:06:11 01/13/2001/13/2024 urina lysis , dipst ick Specific [place] 1.010 Not Available [facility] [address], [place], [address], 01/13/2024 11:06:11 01/13/2001/13/2024 urina lysis , dipst ick Ketone Neg Not Available [place] [address], [place], [address], 01/13/2024 11:06:11 01/13/20 24 01/13/2024 urina lysis , dipst ick Bilirubin Neg Not Available Dorothea aragon [address], [place], [address], 01/13/2024 11:06:11 01/13/2001/13/2024 urina lysis , dipst ick Glucose Neg Not Available [place] [address], [place], [address], 01/13/2024 11:06:11 01/13/2001/13/2024 urina lysis , dipst ick Appearance Clear Not Available [facility] [address], [place], [address], 01/13/2024 11:06:11 01/13/2001/13/2024 urina lysis , dipst ick Color Yellow Not Available [place] [address], [place], [address], 01/13/2024 11:06:11 01/21/20 24 01/21/2024 WOMEN 'S HEALT H SWAB PLUS, BOLIVAR bacterial vaginosis (bv), tma Negati ve negati ve Not Available [facility] (Lab) [address], [place], [address], 01/24/2024 14:19:14 01/21/20 24 01/21/2024 WOMEN 'S HEALT H SWAB PLUS, BOLIVAR akin species, tma Positi ve negati ve abnormal Not Available [facility] (Lab) [address] [place], [address], 01/24/2024 14:19:14 01/21/20 24 01/21/2024 WOMEN 'S HEALT H SWAB PLUS, BOLIVAR akin glabrata, tma Negati ve negati ve Not Available [facility] (Lab) [address], [place], [address], 01/24/2024 14:19:14 01/21/20 24 01/21/2024 WOMEN 'S HEALT H SWAB PLUS, BOLIVAR trichomonas vaginalis, tma Negati ve negati ve Not Available [facility] (Lab) [address] [facility], [place], [address], 01/24/2024 14:19:14 01/21/20 24 01/21/2024 WOMEN 'S HEALT H SWAB PLUS, BOLIVAR chlamydia trachomatis, PCR Negati ve negati ve Not Available [facility] (Lab) [address] [facility], [place], [address], 01/24/2024 14:19:14 01/21/20 24 01/21/2024 WOMEN 'S HEALT H SWAB PLUS, BOLIVAR neisseria gonorrhoeae, PCR Negati ve negati ve Bacte rial vagin osis detec ts the follo wing bacte tabitha assoc iated with bacte rial vagin osis (BV): Lacto bacil roxanne (L. gasse ri, L. crisp atus and L. jense fernanda), Gardn erell a vagin ha, and Atopo bium vagin ae. A singl e quali tativ e resul t is repor tawnya base on instr ument softw are to deter mine BV posit nirmala or negat nirmala statu s. The Jnanie da speci es group tests for C. albic ans, C. tropi calis , C. parap rajeev is, C. dubli niens is. Testi ng is perfo rmed using the Trans cript ion Media tawnya Ampli ficat ion metho d. Tests for Jannie da glabr alayna, Trich omona s vagin ha, Chlam ydia trach omati s, and Neiss eria gonor rhoea e are also inclu ded in this panel . Not Available [facility] (Lab) [address] [facility], [place], [address], 01/24/2024 14:19:14 01/21/20 24 01/21/2024 CULTU RE: HERPE S SIMPL EX VIRUS (HSV) , REFLE X TYPIN G source LESION FLUID Not Available [facility] (Lab) [address] [place], [address], 01/24/2024 14:19:14 01/21/20 24 01/21/2024 CULTU RE: HERPE S SIMPL EX VIRUS (HSV) , REFLE X TYPIN G hsv culture, body fluid NOT ISOLAT ED Perfo rming Organ izati on Infor matio n: Site ID: [id number] Name: [facility] [facility] Addre ss: [address] [place] [address] Dire tor: Antho ny V Millie s Not Available [facility] (Lab) [address] [facility], [place], [address], 01/24/2024 14:19:14 04/07/19 25 04/07/2024 CULTU RE: HERPE S SIMPL EX VIRUS (HSV) , REFLE X TYPIN G source VESICL E Not Available [facility] (Lab) [address] [facility], [place], [address], 04/11/2024 13:04:09 04/07/19 25 04/07/2024 CULTU RE: HERPE S SIMPL EX VIRUS (HSV) , REFLE X TYPIN G hsv culture, body fluid NOT ISOLAT ED Perfo rming Organ izati on Infor mat n: Site ID: [id number] Name: Ignacio [facility] Addre ss: [address] [place] [address] Dire tor: Antho ny V Millie s Not Available [facility] (Lab) [address] [facility], [place], [address], 04/11/2024 13:04:09 04/07/19 25 04/07/2024 pregn lolita test, urine HCG negati ve Not Available [place] [address], [place], [address], 04/07/2024 12:55:11 04/15/19 24 04/15/2023 US, trans vagin al No observ ation record ed. [email or web address] [place] [address], [place], [address], 04/15/2023 13:34:21 04/15/19 24 04/15/2023 US, trans vagin al No observ ation record ed. EBONI Conroy [address], [place], [address], 04/21/2023 14:27:14 Result Notes None recorded. Problems Name Problem SNOMED Code Status Onset Date Resolution Date Notes Provider Name and Address Organization Details Recorded Time Pregnanc y 07539126 Completed 202211/08/[address] [facility] [facility] 3 16:58:57 Deliveri es by [id number] Completed r/t breech - Pt uncertai n re or R CS, will decide soon. repeat US 35w. [facility] [facility] 3 16:58:52 Past pregnanc y history of section 404303453 Active 2022 Bethanie Yo MD [address], [place], [address], [facility] 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 3 16:58:52 Problem Notes None recorded. Procedures Surgical History Date Name Laterality Status Provider Name and Address Organization Details Recorded Time 05/16/19 24 procedure on gallbladder completed JUANCARLOS Duncan [facility] 04/07/2024 12:04:07 10/26/19 23 section completed Marisol Rodriguez [facility] 12/09/2022 11:03:34 04/02/19 23 Date of Last Pap Smear completed Elizabeth Ravi [facility] 04/24/2022 17:59:26 11/08/19 18 Caesarean Section completed Marisol Rodriguez [facility] 06/20/2022 15:29:55 03/17/19 07 Tonsillectomy completed Marisol Rodriguez [facility] 06/20/2022 15:30:31 Imaging Results Imaging Date Name Status LastModified by Organization Details LastModified Time 04/15/2023 US, transvaginal completed [email or web address] [facility] [email or web address] [address], [place], [address], 04/15/2023 13:34:21 04/15/2023 US, transvaginal completed EBONI Marycarmen [address], [place], [address], 04/21/2023 14:27:14 Procedure Notes None recorded. Medical Equipment None Reported. Allergies No known drug allergies Medications Name Sig Start Date Stop Date Status Note LastModified by Organization Details LastModified Time Mirena 21 mcg/24 hr (up to 8 years) 52 mg intrauter ine device Take by intraute rine route. 04/02 completed Not Available Not Available Not Available nystatin 100,000 unit/gram topical ointment apply by topical route 2 times every day to the affected area(s) 02/15 completed Prescrib ed Elsewher e: No Locat ion: [facility] odify By: ernesto knight DateTime : 01/03/20 15 10:30:00 AM Not Available Not Available Not Available fluconazo le 150 mg tablet TAKE 1 TABLET BY MOUTH 1 TIME 04/07 completed Not Available Not Available Not Available valacyclo vir 1 gram tablet TAKE 1 TABLET BY MOUTH EVERY DAY FOR 5 DAYS active Not Available Not Available No t Available ondansetr on HCl 4 mg tablet Take 1 tablet twice a day by oral route. 04/07 completed Not Available Not Available Not Available Monistat 7 2 % vaginal cream insert 1 applicat orful by vaginal route every day at bedtime 11/14 completed Prescrib ed Elsewher e: No Locat ion: [facility] odify By: aida knight DateTime : 10/22/19 18 02:06:11 PM Not Available Not Available Not Available famotidin e 40 mg tablet TAKE 1 TABLET BY MOUTH DAILY 12/10 completed Not Available Not Available Not Available Compazine 10 mg tablet take 1 tablet by oral route 3 times every day 11/14 completed Prescrib ed Elsewher e: No Locat ion: [facility] odify By: [email or web address] E ncounter DateTime : 06/06/19 18 05:15:00 PM Not Available Not Available Not Available sumatript an 50 mg tablet take 1 tablet by oral route after onset of migraine ; may repeat after 2 hours if headache returns, not to exceed 200mg in 24hrs 04/02 completed Prescrib ed Elsewher e: No Locat ion: [facility] odify By: [email or web address] Encounte r DateTime : 06/11/19 19 04:30:00 PM Not Available Not Available Not Available metronida zole 500 mg tablet TAKE 1 TABLET BY MOUTH TWICE DAILY FOR 7 DAYS 04/07 completed Not Available Not Available Not Available acetamino phen 300 mg-codein e 30 mg tablet 08/30 completed Not Available Not Available Not Available ketorolac 10 mg tablet TAKE 1 TABLET BY MOUTH EVERY 6 HOURS FOR 4 DAYS 12/10 completed Not Available Not Available Not Available oxycodone -acetamin ophen 5 mg-325 mg tablet TAKE 1/2 TO 1 TABLET BY MOUTH EVERY 6 HOURS NEEDED FOR PAIN 12/10 completed Not Available Not Available Not Available dicyclomi ne 20 mg tablet TAKE 1 TABLET BY MOUTH FOUR TIMES DAILY 04/10 completed Not Available Not Available Not Available promethaz ine 25 mg tablet 08/30 completed Not Available Not Available Not Available docusate sodium 100 mg capsule TAKE ONE CAPSULE BY MOUTH TWICE DAILY NEEDED FOR CONSTIPA TION 04/10 completed Not Available Not Available Not Available Valtrex 500 mg tablet take 1 tablet by oral route every day for 10 days 08/30 completed Prescrib ed Elsewher e: No Locat ion: [facility] odify By: [email or web address] h Encoun ter DateTime : 08/22/19 18 10:45:00 AM Not Available Not Available Not Available Tagamet HB 200 mg tablet take 1 tablet by oral route 2 times every day 30 minutes before meals 04/02 completed Prescrib ed Elsewher e: No Locat ion: [facility] odify By: indra quintero DateTime : 06/06/19 18 05:15:00 PM Not Available Not Available Not Available ergocalci ferol (vitamin D2) 1,250 mcg (50,000 unit) capsule TAKE 1 CAPSULE BY MOUTH EVERY WEEK 04/07 completed Not Available Not Available Not Available ibuprofen 600 mg tablet TAKE 1 TABLET BY MOUTH EVERY 6 HOURS NEEDED FOR CRAMPING 04/10 completed Not Available Not Available Not Available NuvaRing 0.12 mg-0.015 mg/24 hr vaginal insert 1 vaginal ring by vaginal route every month leave in place for 3 weeks, remove for 1 week 04/10 completed Prescrib ed Elsewher e: No Locat ion: [facility] odify By: francois gardner DateTime : 07/26/19 02:04:16 PM Not Available Not Available Not Available nitrofura ntoin monohydra te/macroc rystals 100 mg capsule TAKE 1 CAPSULE BY MOUTH EVERY 12 HOURS FOR 7 DAYS 01/20 completed Not Available Not Available Not Available sumatript an 04/02 completed Not Available Not Available Not Available iron 04/07 completed Not Available Not Available Not Available Tagamet HB 04/02 completed Not Available Not Available Not Available Vitamin 04/10 completed Not Available Not Available Not Available Lo Loestrin Fe 1 mg-10 mcg (24)/10 mcg (2) tablet TAKE 1 TABLET BY MOUTH EVERY DAY 04/02 completed Not Available Not Available Not Available Topicaine 4 % topical gel apply to affected area three times daily 02/15 completed Prescrib ed Elsewher e: No Locat ion: [facility] odify By: ernesto knight DateTime : 01/07/20 15 03:00:00 PM Not Available Not Available Not Available Monistat 3 4 % (200 mg)-2 %(9 gram)vagi nal pack,pref il appl and cream insert vaginall y for 3 nights 10/21 completed Prescrib ed Elsewher e: No Locat ion: [facility] odify By: ave quintero DateTime : 09/26/19 18 10:30:07 AM Not Available Not Available Not Available sumatript an (bulk) 08/30 completed Not Available Not Available Not Available Estarylla 0.25 mg-35 mcg tablet 08/30 completed Not Available Not Available Not Available Blisovi Fe 04/05 (28) 1 mg-20 mcg (21)/75 mg (7) tablet TAKE 1 TABLET BY MOUTH EVERY DAY active Not Available Not Available No t Available BinaxNOW COVID-19 Ag Self Test kit TEST DIRECTED TODAY 12/10 completed Not Available Not Available Not Available Vitals Date Recorded Body height Body mass index (BMI) Body weight Systolic blood pressure Diastolic blood pressure Provider Name and Address Organization Details Last Updated DateTime 04/16/2023 154.94 cm 37.3 kg/m2 41302.85 g 130 mm[Hg] 76 mm[Hg] Fatmata Singh [facility] 4 15:18:08 Date Recorded Body height Body mass index (BMI) Body weight Systolic blood pressure Diastolic blood pressure Provider Name and Address Organization Details Last Updated DateTime 12/11/2023 154.94 cm 33.4 kg/m2 38405.85 g 122 mm[Hg] 82 mm[Hg] Flor Santoro [facility] 4 15:47:16 Date Recorded Body height Body mass index (BMI) Body weight Systolic blood pressure Diastolic blood pressure Provider Name and Address Organization Details Last Updated DateTime 01/21/2024 154.94 cm 32.3 kg/m2 64510.3 g 125 mm[Hg] 82 mm[Hg] Ivanna Rodgers [facility] 4 11:55:12 Date Recorded Body height Body mass index (BMI) Body weight Systolic blood pressure Diastolic blood pressure Provider Name and Address Organization Details Last Updated DateTime 04/07/2024 154.94 cm 30.9 kg/m2 45440.99 g 128 mm[Hg] 78 mm[Hg] JUANCARLOS Duncan [facility] 5 12:02:50 Social History Question Answer Notes LastModified by Organizat ion Details LastModified Time Tobacco Smoking Status Never Smoker Elizabeth arce, [facility] 04/02/2022 15:32:21 What Is Your Level Of Alcohol Consumption? None Information not available 04/02/2022 If You Are , What Was Your Level Of Alcohol Consumption Prior To ? Occasional [email or web address] Information not available 07/08/2022 Are You Blind Or Do You Have Difficulty Seeing? No Information not available 04/02/2022 What Is Your Level Of Caffeine Consumption? Moderate Information not available 04/02/2022 How Much Tobacco Do You Chew? None Information not available 04/02/2022 In The 14 Days Before Symptom Onset, Have You Had Close Contact With A Laboratory-confir med COVID-19 While That Case Was Ill? No Information not available 04/02/2022 In The 14 Days Before Symptom Onset, Have You Had Close Contact With A Person Who Is Under Investigation For COVID-19 While That Person Was Ill? No Information not available 04/02/2022 Have You Been To An Area Known To Be High Risk For COVID-19? No Information not available 04/02/2022 Are You Deaf Or Do You Have Serious Difficulty Hearing? No Information not available 04/02/2022 What Type Of Diet Are You Following? REGULAR Information not available 04/02/2022 What Is The Highest Grade Or Level Of School You Have Completed Or The Highest Degree You Have Received? 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 No Information not available 04/02/2022 Do You Use Protection During Sex? No Information not available 04/02/2022 Do You Use Your Seat Belt Or Car Seat Routinely? Yes Information not available 04/02/2022 Are You Sexually Active? Yes [email or web address] Information not available 04/07/2024 Do You Have Smoke And Carbon Monoxide Detectors In Your Home? Yes Information not available 04/02/2022 How Much Tobacco Do You Smoke? No Information not available 04/02/2022 Do You Feel Stressed (tense, Restless, Nervous, Or Anxious, Or Unable To Sleep At Night)? [id number] Information not available 04/02/2022 Do You Use Any Illicit Or Recreational Drugs? No Information not available 04/02/2022 Do You Use Sunscreen Routinely? No Information not available 04/02/2022 Has Tobacco Cessation Counseling Been Provided? No [email or web address] Information not available 07/08/2022 Have You Used IV Drugs? No Information not available 04/02/2022 Do You Or Have You Ever Used Any Other Forms Of Tobacco Or Nicotine? No [email or web address] Information not available 07/08/2022 Sex: Unknown Functional Status Question Answer Note LastModified by Organizat ion Details LastModified Time Do you have difficulty walking or climbing stairs? No Information not available 06/20/2022 Are you able to walk? [email or web address] Information not available 04/02/2022 Are you able to care for yourself? Yes [email or web address] Information not available 06/20/2022 Do you have difficulty dressing or bathing? No [email or web address] Information not available 06/20/2022 What is your exercise level? Occasional Information not available 04/02/2022 Mental Status None recorded. Family History Relationship Description Onset Age of this Age Resolved Age Notes LastModified by Organization Details LastModified Time Mother Anemia [email or web address] Not available 10:47:49 Paternal Grandmother Disorder of cardiovascul ar system [email or web address] Not available 2022 14:38:35 Paternal Grandmother Diabetes mellitus [email or web address] Not available 2019 10:48:33 Paternal Grandmother Hypertensive disorder [email or web address] Not available 2019 10:49:01 Maternal Grandfather Disorder of cardiovascul ar system [email or web address] Not available 2022 14:38:35 Maternal Grandfather Hypertensive disorder [email or web address] Not available 2019 10:49:01 Maternal Grandmother Diabetes mellitus [email or web address] Not available 2019 10:48:33 Maternal Grandmother Hypertensive disorder [email or web address] Not available 2019 10:49:01 Paternal Uncle Diabetes mellitus [email or web address] Not available 2019 10:48:33 Paternal Aunt Diabetes mellitus [email or web address] Not available 2019 10:48:33 Paternal Grandfather Hypertensive disorder [email or web address] Not available 2019 10:49:01 Medical History Condition Response Allergies (Food, seasonal, environmental ) N Other N Breast Cancer N Drug/Latex Allergies/Reactions N Blood Transfusion N Dermatologic Disorders N Lung Disease N Defects or Inherited Disease N Breast Problem N Gestational Diabetes N Hematologic disorders N Anesthesia Complications N History of STI Y Deep Vein Thrombosis N Polycystic ovary syndrome N Anxiety Disorder N Autoimmune disease N Arthritis N Infertility N Polyps N Acid Reflux (GERD) N History of abnormal pap N Cancer N Stroke N Varicosities N Neurologic/Epilepsy N Endometriosis N High Cholesterol N Headaches N Fibromyalgia N Kidney Disease N Heart Problems N Kidney or Bladder Problems N Thyroid Problems N GI Problems N Eating Disorder N Anemia N Art (IVF or FET) N Psychiatric Illness N Ovarian Cancer N Diabetes N Pulmonary (TB, Asthma) N Hepatitis/Liver Disease N No Past Medical History N Eczema N Urinary Tract Infection N Abuse/Domestic Violence N Asthma N Trauma/Violence N Depression/ depression N Heart Disease N Pre-Eclampsia N Hypertension N Osteoporosis N Thrombophilias N Gynecological History Statement/Question Response Abnormal Pap N Flow Light Date of LMP 03/22/2023 On BCP's at Conception? N N Was last menstrual period normal Y STIs/STDs Y HPV Vaccine N Duration of Flow (days) 4 Current Control Method None Age at First Child 17 Are cycles usually normal Y Frequency of Cycle (Q days) 27 Sexually Active? Y Menses Monthly Y Age of first menstrual cycle 12 Date of Last Pap Smear 04/02/2022 Sexual Problems? N Desired Control Method BCPs LMP Definite N Obstetrics History GPAL:G 3 P 2 0 1 2 Type Value Full Term 2 Spontaneous 1 Living 2 Total 3 Past Encounters Encounter ID Performer Location Encounter Start Date Encounter Closed Date Diagnosis/Indication Diagnosis SNOMED-CT Code Diagnosis ICD10 Code Diagnosis Note [id number] [facility] [address],[place] [address] 08/13/2019 11:44:01 08/13/2019 14:11:12 Dyspareunia 30951822 N94.10 N93.0 Exam today warrants further evaluation with TVUS & cultures sent. Will schedule at front. Counseled on various possible causes of Dyspareuni a. Time spent in visit is a total of 26 mins with at least 50% of visit consisting of counseling and review of plan of care. Breast lump 03045880 N63 .0 N64.4 Her breast exam warrants further evaluation as very prominent lumps scattered around both breasts; and pain both sides. We agreed to start with breast US & if needed can complete mammogram. Can consider breast specialist moving forward. Pain in pelvis 28649496 R10.2 TVUS being scheduled. [id number] Alejandra Contreras [facility] [address],[place] [address] 08/31/2019 10:59:02 08/31/2019 13:28:42 Postcoital bleeding 69132677 N93.0 Patient is a 19yo white female here today for F/U TVUS for PCB. She is feeling better. No episodes since SHEREEN. TVUS shows 2cm left anechoic cyst but otherwise wnl US. We agreed to r/p TVUS x 8wks or sooner if begin to have issues again. Time spent in visit is a total of 15 mins with at least 50% of visit consisting of counseling and review of plan of care.m [id number] Kendal Steward [facility] [address],[place] [address] 08/31/2019 11:02:11 08/31/2019 16:56:39 Pain in pelvis 38314553 R10.2 N93.0 [id number] Zelda Vazquez CNM [facility] [address],[place] [address] 12/10/2019 16:49:32 12/10/2019 17:09:53 Leukocytes in urine 306243695 R82.79 Urinary tr act infectious disease 05842202 N39.0 [id number] Rosamaria Vázquez [facility] [address],[place] [address] 04/02/2022 14:37:48 04/02/2022 15:12:54 Uncertain viability of 077818719 O36.80X0 Z3A.08 [id number] Justine Garcia [facility] [address],[place] [address] 04/02/2022 14:38:27 04/02/2022 16:47:35 test positive 924619420 Z32.01 Risk factors addressed: Tobacco Cessation, Safe Sexual Practices, environmen sonia, work hazards, travel restrictio ns, seat belt use.Eat a health well balanced diet, avoid alcohol, tobacco, and street drugs.Enga ge in daily low impact exercise, avoid temperatur e extremes, and cat, rodent, and bird feces.Avoi d travel to areas where zika virus is a concern.Of fered cf/sma/nip t. Handouts given and discussed with patient.Ch ildbirth classes recommende d.New OB sheet given.If previous , counseling .Pt verbalizes that she understand s the importance of above instructio ns.All questions were answered.P atient reminded to have annual well woman examinatio n and address preventati ve healthcare . Gynecologi c examination 53182704 Z01.419 Z11.3 Z11.8 [id number] Rosamaria Vázquez [facility] [address],[place] [address] 04/25/2022 09:12:34 04/25/2022 10:54:30 screening 605515594 Z36.82 [id number] Matthew Handy MD [facility] [address],[place] [address] 04/25/2022 09:19:18 04/25/2022 10:43:20 Routine care 575616462 Z34.81 [id number] Rosamaria Vázquez [facility] [address],[place] [address] 05/07/2022 12:21:16 05/07/2022 13:01:00 Threatened miscarriage 55308457 O20.0 Z3A.13 [id number] Mary Mcallister [facility] [address],[place] [address] 05/13/2022 12:31:40 05/13/2022 15:46:07 Cramping pain 240644248 R52 Pt walked into the office and c/o cramping. Pt states lower abd pain/cramp ing bilaterall y and denies any bleeding. Pt denies any UTI/vagina l inf sxs. Checked FHR and FHR was 145bpm. Pt reassured. Pt hasn't tried Tylenol yet and admits she needs to drink more water. Told pt to push fluids and take Tylenol to see if this helps. Told pt could be round ligament pain as well and could look into maternity tape or belly band. Told pt we will check urine as well to make sure there aren't signs of UTI. Pt verbalized understand ing. [email or web address], MARIANNAfter pt left urine sample and left dip showed +1 leuks. Sent for UC. L/m for r/c informing pt of this. [id number] Kendal Steward [facility] [address],[place] [address] 05/21/2022 12:01:02 05/21/2022 12:58:46 [id number] Liudmila Baum [facility] [address],[place] [address] 06/13/2022 11:23:15 06/13/2022 12:13:20 Abdominal pain in 856445769 Z3A.19 [id number] Rosamaria Vázquez [facility] [address],[place] [address] 06/20/2022 13:45:29 06/20/2022 16:11:50 screening 017837133 Z36.3 [id number] Justine Annateresita [facility] [address],[place] [address] 06/20/2022 13:53:18 06/25/2022 16:56:55 Routine care 279696927 Z34.92 [id number] Justine Garcia [facility] [address],[place] [address] 07/08/2022 12:32:42 07/09/2022 17:11:05 Right upper quadrant pain 012718293 R10.11 Fatigue 17131758 R53.83 [id number] Rosamaria Vázquez [facility] [address],[place] [address] 07/18/2022 13:48:21 07/18/2022 15:10:01 screening 062442495 Z36.2 Z3A.24 [id number] [facility] [address],[place] [address] 07/18/2022 13:49:37 07/18/2022 15:40:39 Routine care 580825652 Z34.92 [id number] [facility] [address],[place] [address] 08/14/2022 10:57:05 08/14/2022 11:34:57 Uterine size for dates discrepancy 431105179 O26.849 Z3A.27 [id number] [facility] [address],[place] [address] 08/14/2022 10:59:20 08/14/2022 12:14:02 Routine care 644337851 Z34.92 [id number] Bethanie Yo MD [facility] [address],[place] [address] 08/30/2022 10:51:17 09/03/2022 15:03:48 Routine care 126334525 Z34.83 Past pregn lolita history of section 416478576 Z98.890 [id number] Zelda Vazquez CNM [facility] [address],[place] [address] 09/11/2022 17:20:19 09/11/2022 18:28:59 Routine care 685871048 Z34.92 [id number] Zelda Vazquez CNM [facility] [address],[place] [address] 09/25/2022 11:49:21 09/25/2022 12:21:48 Routine care 902497017 Z34.92 [id number] Liudmila Baum [facility] [address],[place] [address] 10/09/2022 10:56:32 10/09/2022 11:41:37 Uterine size for dates discrepancy 979329466 O26.843 Z3A.35 [id number] [facility] [address],[place] [address] 10/09/2022 10:56:52 10/09/2022 12:16:25 Routine care 052488324 Z34.92 [id number] Zelda Vazquez [facility] [address],[place] [address] 10/18/2022 11:03:12 10/18/2022 11:39:22 Routine care 846018739 Z34.92 [id number] Matthew Handy MD [facility] [address],[place] [address] 11/04/2022 12:33:33 11/05/2022 10:35:26 Postoperative care 822874444 Z48.89 This patient is a 22-year-ol d female who presents for postop follow-up. She is 1 week postop from a delivery. She is recovering normally. Her incision is clean dry and intact. Her mood is good. Her baby is well. She will follow-up in 3 weeks. [id number] Matthew Handy MD [facility] [address],[place] [address] 11/25/2022 14:58:06 11/25/2022 15:46:44 care 486963240 Z39.2 22-year-ol d female who presents for follow-up. She is not bleeding at this time. She has not had sex. Her baby is doing well. She is doing well. We are going to place a Mirena IUD for contracept ion and she is bottle feeding. She has no complaints today. She will return in 2 months for well-woman exam, she return in 2 weeks for IUD insertion. [id number] BRIONNA Silva [facility] [address],[place] [address] 04/10/2023 14:02:37 04/11/2023 09:28:20 Pain in pelvis 20584577 R10.2 Detailed health hx updated and reviewed todaydiscu ssed her abdominal pain, suspect possible GI source of pain given location. Will update pelvic u/s, encouraged pt to f/u with PCP/GI for further evaluation as well.vagin itis panel sent, rx for BVSTI and UPT declinedpr ecautions reviewedRT C for f/u to review imaging Time spent in visit is a total of 25mins with at least 50% of visit consisting of counseling and review of plan of care. Patient is to contact office or go to nearest ED/Urgent care if fever >/= 100.1, pain, excessive bleeding, unusual drainage or swelling in area of concern; or experienci ng worsening sx's or new onset of concerning sx's. Understand ing verbalized . All questions answered to patient satisfacti on. Vaginitis 21875158 N76.0 [id number] [facility] [address] [address] 04/15/2023 10:57:32 04/15/2023 11:33:10 Pain in pelvis 78801523 R10.2 N93.0 [id number] Briana Izaguirre [facility] [address] [address] 04/16/2023 14:46:16 04/16/2023 16:30:57 Herpes simplex 30753816 B00.9 HSV appearing lesionHSV PCR sentrx for valtrex coursesafe sexual practices discussed Abdominal pain 70579749 R10.9 reviewed updated TVUS - normalgive n location of pain suspect GI source. Encouraged to schedule with her PCP for f/u, GI referral sentprecau tions reviewed Patient is to contact office or go to nearest ED/Urgent care if fever >/= 100.1, pain, excessive bleeding, unusual drainage or swelling in area of concern; or experienci ng worsening sx's or new onset of concerning sx's. Understand ing verbalized . All questions answered to patient satisfacti on. Time spent in visit is a total of 30 mins with at least 50% of visit consisting of counseling and review of plan of care. [id number] Matthew Handy MD [facility] [address],[place] [address] 12/11/2023 15:41:41 12/11/2023 16:19:51 Contraception care management 117766032 Z30.9 This patient is a 23-year-ol d female presents for contracept ion. She is undecided as to what she should start. Talked about all her options. We talked about control pills, patches, vaginal ring. We talked about progestero ne containing and copper IUD. We talked about progestero ne only options such as Depo-Prove ra shot, progestero ne only pills, Nexplanon. We talked about the risks benefits and pros and cons of each method. We spent 15 minutes face-to-fa ce. All of this was counseling . Ultimately she decided on OCP's . She was given instructio ns on starting this method. She was informed of side effects. She was given precaution s on failure and special circumstan deangelo. She was quoted failure rates for all of the methods we discussed. we discussed risks, benefits, and alternativ es. She will be prescribed a pill she has taken in the past. Loestrin 20 mcg I spent over 30 minutes on her care in total. Extensive counseling and medication prescripti on Vitamin D deficiency [phone] [id number] E55.9 [id number] Fatmata Singh [place] [address],[place] [address] 01/13/2024 10:30:02 01/13/2024 11:17:29 Urinary symptoms [id number] R39.9 [id number] KEREN PLUMMER MD [place] [address],[place] [address] 01/21/2024 11:48:18 01/21/2024 12:23:32 Vaginitis [id number] N76.0 - 2 week duration- unresolved with macrobid, valtrex or diflucan- suspect BV, will treat empiricall y- HSV and vaginitis swabs sent [id number] BRIONNA Silva [place] [address],[place] [address] 04/07/2024 11:50:08 04/07/2024 13:03:01 Lesion of vulva [id number] N90.89 HSV appearing lesion notedrx sent for valtrex - r/b/a reviewedvu lvar care guidelines discussedS TI screen declinedco ntraceptiv e options discussed, declined at this time Time spent in visit is a total of 20 mins with at least 50% of visit consisting of counseling and review of plan of care. Contracept ion care management [id number] Z30.9 Venereal d isease screening [id number] Z11.3 Health Concerns Section Related Observation LastModified by Organization Detai ls LastModified Time None Recorded Concern Status LastModified by Organization Details LastModified Time None Recorded Advance Directives Directive None Recorded Payers Encounter Date Sequence Insurance Name Policy Number Policy Martínez Covered Member ID Martínez Member ID Guarantor Name 04/16/2023 1 [employer] [place] [id number] Guillermina Ferrera [id number] Guillermina Ferrera 12/11/2023 1 [employer] [place] [id number] Guillermina Ferrera [id number] Guillermina Ferrera 01/13/2024 1 [employer] [place] [id number] 0003 Guillermina Ferrera [id number] Guillermina Ferrera 01/21/2024 1 [employer] [place] [id number] 0003 Guillermina Ferrera [id number] Guillermina Ferrera 04/07/2024 1 [employer] [place] [id number] 0003 Guillermina Ferrera [id number] Guillermina Ferrera Notes Date Note Type Note Provider Name and Address Organization Details Recorded Time 04/16/2023 text/html 23yopresents for u/s f/uHPI as followed: 23yo [id number]/p repeat c/s 3presents for evaluation of abdominal painleft sided abdominal pain x 1 month. Comes and goes. Worse with activity. Located in middle of left side of abdomen.bowel movements are daily or every other day. No constipation or diarrheano urinary symptomsno n/v/fno flu-like symptomsnot SA x 1 yrmonthly periods, LMP 4pain does not extend into the pelvis has noticed a small bump/lesion on right labia a few days ago - has a hx of HSV BRIONNA Silva [address], [place], [address], [facility] 04/16/2023 16:29:56 12/11/2023 text/html This patient is a 23-year-old female presents for contraception. She is undecided as to what she should start. Talked about all her options. We talked about control pills, patches, vaginal ring. We talked about progesterone containing and copper IUD. We talked about progesterone only options such as Depo-Provera shot, progesterone only pills, Nexplanon. We talked about the risks benefits and pros and cons of each method. We spent 15 minutes [id number]. All of this was counseling. Ultimately she decided on OCP's . She was given instructions on starting this method. She was informed of side effects. She was given precautions on failure and special circumstances. She was quoted failure rates for all of the methods we discussed. we discussed risks, benefits, and alternatives. She will be prescribed a pill she has taken in the past. Loestrin 20 mcg Matthew Handy MD [address], [place], [address], [facility] 12/11/2023 16:18:21 01/21/2024 text/html Patient presents for evaluation of vaginitis. She reports 2 week duration. She thought it was a UTI but it did not improve with macrobid. She also reports no improvement with diflucan or valtrex (known hx of HSV). She reports some discharge, burning and pruritis. No abnormal bleeding or fevers or chills. KEREN PLUMMER MD [address], [place], [address], [facility] 01/21/2024 12:18:13 04/07/2024 text/html 24yopresents for evaluation of vulvar lesionnoticed 3 days agosmall/circular/o pen area on outer right labia majoratender to touchhas h/o genital HSV no new partnersLMP : 03/22/2023took Plan B over the weekend Briana Izaguirre BRIONNA [address], [place], [address], [facility] 04/07/2024 13:02:43 OBGyn Episode Ob Episode Information Episode Created Date Number of Fetuses Patient Bloodtype Patient rh Status Prepregnancy Weight lbs Domestic Partner Domestic Partner Phone Father Name [employer] Affili[employer] Status 08/13/19 20 1 CLOSED Fetus Data First Name Last Name Admitted to NICU Weight (g) Sex Living Outcome Pediatric Complications Fetus ID Race Codes Race Delivery Type 3458.63 9 M Full Term 1854 Primary Chon Calculation Initial Chon Date Initial Exam Date Initial Exam Provider Initial Ultrasound Date Last Menstrual Period Date Ultra Sound Weeks Gestation 0 Eighteen To Twenty Week Chon Update Ultra Sound Date Fundal Height At Umbil Quickening Date Ultra Sound Latest Weeks Gestation Final Chon Confirmed By Final Chon Confirmed Date Final Chon Date Ultra Sound Latest Days Gestation 0 0 Menstrual History Last Menstrual Date Menses Monthly On Bcp Conception Prior Menses Frequency Hcg Plus Date Menarche Onset Age Delivery Information Delivery Date Delivery Type Labor Anesthesia Weeks Gestation Incision Type Labor Labor Length Hrs Delivered By Post Complications Tubal Sterilization Discharge Date Comments 8 39 breech Discharge Information Feeding Method Contraceptive Method Maternal HG B and HCT Levels Ob Episode Information Episode Created Date Number of Fetuses Patient Bloodtype Patient rh Status Prepregnancy Weight lbs Domestic Partner Domestic Partner Phone Father Name Research Affiliate Status 04/25/19 23 1 B Positive 186 CLOSED Fetus Data First Name Last Name Admitted to NICU Weight (g) Sex Living Outcome Pediatric Complications Fetus ID Race Codes Race Delivery Type Juan 3175.14 4 M true Full Term [id number] Repeat Problems Problem Notes B+/TSH low, but T4 normal Problem Name Start Date End Date Resolution Snomed Code Not e 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 repeat US 36w. Chon Calculation Initial Chon Date Initial Exam Date Initial Exam Provider Initial Ultrasound Date Last Menstrual Period Date Ultra Sound Weeks Gestation 11/07/2022 04/25/2022 04/02/2022 8 Eighteen To Twenty Week Chon Update Ultra Sound Date Fundal Height At Umbil Quickening Date Ultra Sound Latest Weeks Gestation Final Chon Confirmed By Final Chon Confirmed Date Final Chon Date Ultra Sound Latest Days Gestation 0 [email or web address] 04/25/2022 11/08/19 23 0 Pre-josi Flowsheet Flowsheet Date 04/25/2022 Allen Score Blood Edema Fundus Height Fundus Units Glucose Ketones Leukocytes Nitrite Labor Signs Protein Cervic Dilation Cervic Effacement Cervic Station Type Weight in lbs Pre/Post Dialysis Refused BP Diastolic BP Location Tested BP Systolic BP Type Fetus Heart Rate Present Fetus Movement Comments Flowsheet Date 04/25/2022 Allen Score Blood Edema Fundus Height Fundus Units Glucose Ketones Leukocytes Nitrite Labor Signs Protein Cervic Dilation Cervic Effacement Cervic Station 12 Type Weight in lbs Pre/Post Dialysis Refused Weight 185.818692903034 BP Diastolic BP Location Tested BP Systolic BP Type 74 R arm 127 sitting Fetus Heart Rate Present A 156 Fetus Movement Comments this patient is a 19-year-ol d 3 para 1011 at 12 weeks gestation who presents for initial care. She is not vaccinated for COVID. She was given vaccine recommendations. We talked about care in detail. She had a previous . She would like to repeat . Flowsheet Date 05/07/2022 Allen Score Blood Edema Fundus Height Fundus Units Glucose Ketones Leukocytes Nitrite Labor Signs Protein Cervic Dilation Cervic Effacement Cervic Station Type Weight in lbs Pre/Post Dialysis Refused BP Diastolic BP Location Tested BP Systolic BP Type Fetus Heart Rate Present Fetus Movement Comments Flowsheet Date 05/13/2022 Allen Score Blood Edema Fundus Height Fundus Units Glucose Ketones Leukocytes Nitrite Labor Signs Protein Cervic Dilation Cervic Effacement Cervic Station Type Weight in lbs Pre/Post Dialysis Refused BP Diastolic BP Location Tested BP Systolic BP Type Fetus Heart Rate Present Fetus Movement Comments Flowsheet Date 05/21/2022 Allen Score Blood Edema Fundus Height Fundus Units Glucose Ketones Leukocytes Nitrite Labor Signs Protein Cervic Dilation Cervic Effacement Cervic Station Type Weight in lbs Pre/Post Dialysis Refused BP Diastolic BP Location Tested BP Systolic BP Type Fetus Heart Rate Present Fetus Movement Comments Flowsheet Date 06/13/2022 Allen Score Blood Edema Fundus Height Fundus Units Glucose Ketones Leukocytes Nitrite Labor Signs Protein Cervic Dilation Cervic Effacement Cervic Station Type Weight in lbs Pre/Post Dialysis Refused BP Diastolic BP Location Tested BP Systolic BP Type Fetus Heart Rate Present Fetus Movement Comments Flowsheet Date 06/20/2022 Allen Score Blood Edema Fundus Height Fundus Units Glucose Ketones Leukocytes Nitrite Labor Signs Protein Cervic Dilation Cervic Effacement Cervic Station Type Weight in lbs Pre/Post Dialysis Refused BP Diastolic BP Location Tested BP Systolic BP Type Fetus Heart Rate Present Fetus Movement Comments Flowsheet Date 06/20/2022 Allen Score Blood Edema Fundus Height Fundus Units Glucose Ketones Leukocytes Nitrite Labor Signs Protein Cervic Dilation Cervic Effacement Cervic Station none Type Weight in lbs Pre/Post Dialysis Refused Weight 186.807349161816 BP Diastolic BP Location Tested BP Systolic BP Type 87 126 Fetus Heart Rate Present Fetus Movement A Yes Comments Doing well but does still alcazar ve occasional nausea and vomiting. Will send out rx for zofran. Discussed risks and benefits. Baseline anatomy today. Will plan to repeat in 4 weeks. Pt informed of EIF. Will await recommendations. Flowsheet Date 07/08/2022 Allen Score Blood Edema Fundus Height Fundus Units Glucose Ketones Leukocytes Nitrite Labor Signs Protein Cervic Dilation Cervic Effacement Cervic Station neg trace none trace Type Weight in lbs Pre/Post Dialysis Refused Weight 189.235719259911 BP Diastolic BP Location Tested BP Systolic BP Type 82 126 Fetus Heart Rate Present A 150 Fetus Movement A Yes Comments Pt c/o feeling dizzy and swe lling in feet. Swelling improved. Dizzy off and on. Discussed possible causes including dehydration, low blood sugar, or poor blood return. Talked about ways to improve. Pt feels she definitely needs to drink more water. BP normal and swelling improved. Will check labs today. Precautions given. Pt verbalized understanding. Flowsheet Date 07/18/2022 Allen Score Blood Edema Fundus Height Fundus Units Glucose Ketones Leukocytes Nitrite Labor Signs Protein Cervic Dilation Cervic Effacement Cervic Station Type Weight in lbs Pre/Post Dialysis Refused BP Diastolic BP Location Tested BP Systolic BP Type Fetus Heart Rate Present Fetus Movement Comments Flowsheet Date 07/18/2022 Allen Score Blood Edema Fundus Height Fundus Units Glucose Ketones Leukocytes Nitrite Labor Signs Protein Cervic Dilation Cervic Effacement Cervic Station neg trace none trace Type Weight in lbs Pre/Post Dialysis Refused Weight 191.397656004599 BP Diastolic BP Location Tested BP Systolic BP Type 90 140 80 136 Fetus Heart Rate Present Fetus Movement A Yes Comments patient is having some pelvi c pain, swelling, nausea and vomiting. efw 82% given exercises for breech, eif stable, f/u 4 weeks, wants Flowsheet Date 08/14/2022 Allen Score Blood Edema Fundus Height Fundus Units Glucose Ketones Leukocytes Nitrite Labor Signs Protein Cervic Dilation Cervic Effacement Cervic Station Type Weight in lbs Pre/Post Dialysis Refused BP Diastolic BP Location Tested BP Systolic BP Type Fetus Heart Rate Present Fetus Movement Comments Flowsheet Date 08/14/2022 Allen Score Blood Edema Fundus Height Fundus Units Glucose Ketones Leukocytes Nitrite Labor Signs Protein Cervic Dilation Cervic Effacement Cervic Station neg none none trace Type Weight in lbs Pre/Post Dialysis Refused Weight 199.185894526099 BP Diastolic BP Location Tested BP Systolic BP Type 79 115 Fetus Heart Rate Present Fetus Movement A Yes Comments PATIENT STATES THAT HAVING S OME BH CONTRACTIONS, SWELLING AND NAUSEA AND VOMITING. eif not visualized, doing well, efw 42%, precautions reviewed ok for tdap after 28 weeks, wants 39 week IOL, precautions and education done Flowsheet Date 08/30/2022 Allen Score Blood Edema Fundus Height Fundus Units Glucose Ketones Leukocytes Nitrite Labor Signs Protein Cervic Dilation Cervic Effacement Cervic Station 32 Type Weight in lbs Pre/Post Dialysis Refused Weight 200.283180943025 BP Diastolic BP Location Tested BP Systolic BP Type 79 L arm 115 sitting Fetus Heart Rate Present A 135 Fetus Movement A Yes Comments Doing ok. GCT wnl. COuldn't reach her re anemia, informed, will start slow Fe. Discussed and enocuraged Tdap. She is worried she is breech again. SHe is also questioning her decision to TOLAC, maybe just wants R CS. Discussed in depth risks and benefits of both. She will decide soon. She is considering MIrena for pp BC. Flowsheet Date 09/11/2022 Allen Score Blood Edema Fundus Height Fundus Units Glucose Ketones Leukocytes Nitrite Labor Signs Protein Cervic Dilation Cervic Effacement Cervic Station neg trace 33 none trace Type Weight in lbs Pre/Post Dialysis Refused Weight 204.262886347400 BP Diastolic BP Location Tested BP Systolic BP Type 75 109 Fetus Heart Rate Present A 145 Fetus Movement A Yes Comments patient is having some BH co ntractions, hand numbness, discharge, swelling and nausea. pt really wants a vaginal if allowed IOL at 39 weeks, will discuss with Dr. Yo, f/u 2 weeks, precautions reviewed Flowsheet Date 09/25/2022 Allen Score Blood Edema Fundus Height Fundus Units Glucose Ketones Leukocytes Nitrite Labor Signs Protein Cervic Dilation Cervic Effacement Cervic Station neg trace 34 none trace Type Weight in lbs Pre/Post Dialysis Refused Weight 204.686584407461 BP Diastolic BP Location Tested BP Systolic BP Type 78 115 Fetus Heart Rate Present A 134 Present Fetus Movement A Yes Comments patient is having some swell ing, headaches and pain. precautions reviewed growth in 2 weeks with GBS, f/u 2 weeks +FM Flowsheet Date 10/09/2022 Allen Score Blood Edema Fundus Height Fundus Units Glucose Ketones Leukocytes Nitrite Labor Signs Protein Cervic Dilation Cervic Effacement Cervic Station Type Weight in lbs Pre/Post Dialysis Refused BP Diastolic BP Location Tested BP Systolic BP Type Fetus Heart Rate Present Fetus Movement Comments Flowsheet Date 10/09/2022 Allen Score Blood Edema Fundus Height Fundus Units Glucose Ketones Leukocytes Nitrite Labor Signs Protein Cervic Dilation Cervic Effacement Cervic Station neg trace none trace Type Weight in lbs Pre/Post Dialysis Refused Weight 209.529580304481 BP Diastolic BP Location Tested BP Systolic BP Type 95 146 80 130 Fetus Heart Rate Present Fetus Movement A Yes Comments patient states that having s ome contractions, discharge, swelling and nausea. VTX EFW 52% cervix ft/ soft still wants to try , aware may change mind at any time f/u one week Flowsheet Date 10/18/2022 Allen Score Blood Edema Fundus Height Fundus Units Glucose Ketones Leukocytes Nitrite Labor Signs Protein Cervic Dilation Cervic Effacement Cervic Station neg none none trace Type Weight in lbs Pre/Post Dialysis Refused Weight 213.521170284562 BP Diastolic BP Location Tested BP Systolic BP Type 78 120 Fetus Heart Rate Present Fetus Movement A Yes Comments OB [id number] EDC 11/07/2022, ce rvix almost /60/-2, precautions reviewed, still planning , f/u one week Flowsheet Date 11/04/2022 Allen Score Blood Edema Fundus Height Fundus Units Glucose Ketones Leukocytes Nitrite Labor Signs Protein Cervic Dilation Cervic Effacement Cervic Station Type Weight in lbs Pre/Post Dialysis Refused Weight 194.810915742858 BP Diastolic BP Location Tested BP Systolic BP Type 95 R arm 123 sitting Fetus Heart Rate Present Fetus Movement Comments Menstrual History Last Menstrual Date Menses Monthly On Bcp Conception Prior Menses Frequency Hcg Plus Date Menarche Onset Age Genetic Screening And Infection History Question Response Note Mental Retardation/Autism false Patient's Age Will Be 35 Years Or Older At Estim ated Date of Delivery false Thalassemia (Tanzanian, Turkmen, Mediterranean, Or Background): MCV < 80 false Neural Tube Defect (Meningomyelocele, Spina Bifi da, Or Anencephaly) false Congenital Heart Defect false Down Syndrome false Marcio-Sachs (eg, Taoism, Cajun, [place]) f alse Marychuy Disease false Sickle Cell Disease Or Trait () false Hemophilia Or Other Blood Disorders false Muscular Dystrophy false Cystic Fibrosis false Jessa's Chorea false Intellectual Disability/Autism false If Yes, Was Person Tested For Fragile X? false Other Inherited Genetic Or Chromosomal Disorder false Maternal Metabolic Disorder (eg, Type 1 Diabetes , PKU) false Patient Or Baby's Father Had A Child With Defects Not Listed Above false Recurrent Loss, Or A Stillbirth false Medications (including Suppl ements, Vitamins, Herbs, OTC Drugs), Illicit/Recreational Drugs, Alcohol false If Yes, Agent(s) And Strength/Dosage false Any Other Genetic History false Live With Someone With TB Or Exposed To TB false Patient Or Partner Has History Of Genital Herpes false Rash Or Viral Illness Since Last Menstrual Perio d false History Of STD, Gonorrhea, Chlamydia, HPV, Syphi lis false Other Infection History false History of HIV false History of Hepatitis false Prior GBS-infected child false Hemoglobinopathy Or Carrier false Other Structural Defect false Recent Travel History Outside of Country false Delivery Information Delivery Date Delivery Type Labor Anesthesia Weeks Gestation Incision Type Labor Labor Length Hrs Delivered By Post Complications Tubal Sterilization Discharge Date Comments 3 None Regional-Sp inal 38.1 Low Transvers e false Matthew Handy MD HSV Discharge Information Feeding Method Contraceptive Method Maternal HG B and HCT Levels Ob Episode Information Episode Created Date Number of Fetuses Patient Bloodtype Patient rh Status Prepregnancy Weight lbs Domestic Partner Domestic Partner Phone Father Name Research Affiliate Status 04/25/19 23 1 CLOSED Fetus Data First Name Last Name Admitted to NICU Weight (g) Sex Living Outcome Pediatric Complications Fetus ID Race Codes Race Delivery Type , Spontane ous [id number] Chon Calculation Initial Chon Date Initial Exam Date Initial Exam Provider Initial Ultrasound Date Last Menstrual Period Date Ultra Sound Weeks Gestation 0 Eighteen To Twenty Week Chon Update Ultra Sound Date Fundal Height At Umbil Quickening Date Ultra Sound Latest Weeks Gestation Final Chon Confirmed By Final Chon Confirmed Date Final Chon Date Ultra Sound Latest Days Gestation 0 0 Menstrual History Last Menstrual Date Menses Monthly On Bcp Conception Prior Menses Frequency Hcg Plus Date Menarche Onset Age Delivery Information Delivery Date Delivery Type Labor Anesthesia Weeks Gestation Incision Type Labor Labor Length Hrs Delivered By Post Complications Tubal Sterilization Discharge Date Comments 2 Discharge Information Feeding Method Contraceptive Method Maternal HG B and HCT Levels
== END 2024-04-24 14:26 | disposition left against medical advice (07) ==
PROVIDERS: PCP Family Medicine
DX: O20.9 Hemorrhage in early pregnancy, unspecified (principal); Z3A.01 Less than 8 weeks gestation of pregnancy
CPT/HCPCS: 99199

== ENCOUNTER 2024-07-18 10:13 | Emergency (ER) | payer OTHER, SELFPAY ==
--- OUTSIDE RECORDS SUMMARY | 2024-07-18 10:17 | XMS_ITS | Data Portability ---
Author Organization [facility] [place] Address [address] [place] [address] [place] [address] Care Team Providers Care Software Analyst Name Role Phone KIMBERLY VASQUEZ Primary Care Provider Assessment Encounter Date Assessment Date Assessment LastModified by Organization Details LastModified Time 01/13/2024 01/13/2024 Patients UA showed trace leuks. Per MM Patient to have Macrobid [email or web address] Not available 01/13/2024 11:07:01 Plan of Treatment Reminders Order Date Submit Date Provider Last Modified By Organization Details Last Modified Time Details Appointments None recorded. Lab test, urine 2024 025 [email or web address] [address], [address], [place], [address], 5 12:56:13 urinalysis, dipstick 2023 024 [email or web address] [address], [address], [place], [address], 4 11:07:02 test, urine 2023 024 [email or web address] [address], [address], [place], [address], 4 16:18:17 Referral gastroenter ologist referral [address] [facility], [address], [id number], [place], [address], 4 14:26:38 Procedures None recorded. Surgeries None recorded. Imaging None recorded. Medication Orders Valtrex 1 gram tablet 2024 025 [facility] #[id number], [address], [place], [id number], 5 12:20:59 metronidazo le 500 mg tablet 2023 025 [facility] #43679, [address], [place], [id number], 5 12:03:33 Macrobid 100 mg capsule 2023 024 [facility] #52503, [address], [place], [id number], 4 11:55:41 Vitamin D2 1,250 mcg (50,000 unit) capsule 2023 025 [facility] #88924, [address], [place], [id number], 5 12:03:33 Loestrin Fe 1/20 (28-Day) 1 mg-20 mcg (21)/75 mg (7) tablet 2023 024 [email or web address] [facility] #60343, [address], [place], [id number], 4 16:18:16 Valtrex 1 gram tablet 2023 024 [email or web address] [facility] #41763, [address], [place], [id number], 4 11:55:37 Patient TargetsNo targets recorded. Patient InstructionsNo instructions recorded. 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 detection, direct probe Negati ve negati ve Not Available [facility] (Lab) [address] , [place], [address], 04/11/2023 12:35:24 04/10/19 24 04/10/2023 VAGIN ITIS/ VAGIN OSIS, DNA PROBE gardnerella vag. detection, direct probe Negati ve negati ve Not Available [facility] (Lab) [address], [place], [address], 04/11/2023 12:35:24 04/10/19 24 04/10/2023 VAGIN ITIS/ VAGIN OSIS, DNA PROBE trichomonas vag. detection, direct probe Negati ve negati ve Not Available [facility] (Lab) [address], [place], [address], 04/11/2023 12:35:24 04/16/19 24 04/16/2023 HERPE S SUBTY PE(HS V1/HS V2) RT-PC R, ONESW AB herpes subtype (hsv-1, hsv-2) PCR Positi ve (HSV-2 ) abnormal Swab- 1 Vag Cerv HSV-1 :Nega tive HSV-2 :Posi tive. Not Available [facility] (Lab) [address], [place], [address], 04/19/2023 12:04:10 11/28/19 24 11/28/2023 CBC W/DIF F WBC 7.5 10'3/ uL 3.5-10 .5 Not Available [facility] (Lab) [address] [place], [address], 11/29/2023 06:06:37 09/13/20 24 11/28/2023 CBC W/DIF F RBC 4.60 10'6/ uL (based on docume nted legal sex) 3.80-5 .20 Not Available [facility] (Lab) [address], [place], [address], 11/29/2023 06:06:37 11/28/19 24 11/28/2023 CBC W/DIF F HGB 12.0 g/dL (based on docume nted legal sex) 11.6-1 5.4 Not Available [facility] (Lab) [address], [place], [address], 11/29/2023 06:06:37 11/28/19 24 11/28/2023 CBC W/DIF F HCT 38.8 % (based on docume nted legal sex) 34.0-4 5.0 Not Available [facility] (Lab) [address], [place], [address], 11/29/2023 06:06:37 11/28/19 24 11/28/2023 CBC W/DIF F MCV 84.3 fL 80.0-9 9.0 Not Available [facility] (Lab) [address], [place], [address], 11/29/2023 06:06:37 11/28/19 24 11/28/2023 CBC W/DIF F MCH 26.1 pg 27.0-3 4.0 low Not Available [facility] (Lab) [address], [place], [address], 11/29/2023 06:06:37 11/28/19 24 11/28/2023 CBC W/DIF F MCHC 30.9 g/dL 32.0-3 5.5 low Not Available [facility] (Lab) [address] [place], [address], 11/29/2023 06:06:37 11/28/19 24 11/28/2023 CBC W/DIF F RDW 12.7 % 11.0-1 5.0 Not Available [facility] (Lab) [address], [place], [address], 11/29/2023 06:06:37 11/28/19 24 11/28/2023 CBC W/DIF F plt 264 10'3/ uL 150-40 0 Not Available [facility] (Lab) [address], [place], [address], 11/29/2023 06:06:37 11/28/19 24 11/28/2023 CBC W/DIF F MPV 10.9 fL 8.8-12 .1 Not Available [facility] (Lab) [address], [place], [address], 11/29/2023 06:06:37 11/28/19 24 11/28/2023 CBC W/DIF F NRBC's 0.0 % 0.0 Not Available [facility] (Lab) [address], [place], [address], 11/29/2023 06:06:37 11/28/19 24 11/28/2023 CBC W/DIF F absolute NRBCs 0.0 10'3/ uL no refere nce range establ ished Not Available [facility] (Lab) [address], [place], [address], 11/29/2023 06:06:37 11/28/19 24 11/28/2023 CBC W/DIF F neutrophils 61.6 % 34.0-7 3.0 Not Available [facility] (Lab) [address], [place], [address], 11/29/2023 06:06:37 11/28/19 24 11/28/2023 CBC W/DIF F lymphocytes 32.3 % 15.0-5 0.0 Not Available [facility] (Lab) [address], [place], [address], 11/29/2023 06:06:37 11/28/19 24 11/28/2023 CBC W/DIF F monocytes 4.8 % 1.0-15 .0 Not Available [facility] (Lab) [address], [place], [address], 11/29/2023 06:06:37 11/28/19 24 11/28/2023 CBC W/DIF F eosinophils 0.3 % 0.0-8. 0 Not Available [facility] (Lab) [address], [place], [address], 11/29/2023 06:06:37 11/28/19 24 11/28/2023 CBC W/DIF F basophils 0.7 % 0.0-2. 0 Not Available [facility] (Lab) [address], [place], [address], 11/29/2023 06:06:37 11/28/19 24 11/28/2023 CBC W/DIF F immature granulocytes 0.3 % no define d refere nce range Not Available [facility] (Lab) [address], [place], [address], 11/29/2023 06:06:37 11/28/19 24 11/28/2023 CBC W/DIF F absolute neutrophils 4.6 10'3/ uL 1.5-8. 0 Not Available [facility] (Lab) [address] [place], [address], 11/29/2023 06:06:37 11/28/19 24 11/28/2023 CBC W/DIF F absolute lymphocytes 2.4 10'3/ uL 1.0-4. 0 Not Available [facility] (Lab) [address] [place], [address], 11/29/2023 06:06:37 11/28/19 24 11/28/2023 CBC W/DIF F absolute monocytes 0.4 10'3/ uL 0.2-1. 0 Not Available [facility] (Lab) [address] [place], [address], 11/29/2023 06:06:37 11/28/19 24 11/28/2023 CBC W/DIF F absolute eosinophils 0.0 10'3/ uL 0.0-0. 6 Not Available [facility] (Lab) [address], [place], [address], 11/29/2023 06:06:37 11/28/19 24 11/28/2023 CBC W/DIF F absolute basophils 0.1 10'3/ uL 0.0-0. 3 Not Available [facility] (Lab) [address], [place], [address], 11/29/2023 06:06:37 11/28/19 24 11/28/2023 CBC W/DIF [...] resul ts are expec tawnya. Not Available [facility] (Lab) [address], [place], [address], 11/29/2023 06:06:37 11/28/19 24 11/28/2023 LIPID PANEL ,AMA (LDL- CALC) total cholesterol 120 mg/dL 0-199 Not Available [facility] (Lab) [address], [place], [address], 11/29/2023 06:06:38 11/28/19 24 11/28/2023 LIPID PANEL ,AMA (LDL- CALC) triglyceride s 121 mg/dL 0-150 NCEP Refer ence Value s for Trigl yceri grace: More l: <150 mg/dL Borde rline High: 150 - 199 mg/dL High: 200 - 499 mg/dL Very High: >/= 500 mg/dL Not Available [facility] (Lab) [address] [place], [address], 11/29/2023 06:06:38 11/28/19 24 11/28/2023 LIPID PANEL ,AMA (LDL- CALC) HDL cholesterol 40 mg/dL >40 low Not Available [facility] (Lab) [address], [place], [address], 11/29/2023 06:06:38 11/28/19 24 11/28/2023 LIPID PANEL ,AMA (LDL- CALC) LDL cholesterol [...] mg/dL , HDL <40 mg/dL Not Available [facility] (Lab) [address] [place], [address], 11/29/2023 06:06:38 11/28/19 24 11/28/2023 LIPID PANEL ,AMA (LDL- CALC) non-HDL cholesterol 80 mg/dL no refere nce range A reaso nable goal for non-H DL mere stero l is one that is 30 mg/dL highe r than the LDL mere stero l goal. Not Available [facility] (Lab) [address] [place], [address], 11/29/2023 06:06:38 11/28/19 24 11/28/2023 LIPID PANEL ,AMA (LDL- CALC) chol/HDL ratio 3.0 . 0.0-5. 0 On July 09, 2022, [facility] labor atori anjana be ed the equat ion for calcu latin g estim ated low-d ensit y lipop rotei n-cho leste rol (LDL- C) from the Emelina braggald equat ion to the Jeannie fair/[facility] gilda equat ion. This new equat ion [...] Jeannie fair, Gabriel Bauer, Eddie Brice , Yoli Craft. Usman renteria, Danny Luque, Danny madrigal, Robert Styles. Lakesha pérez , and Sanya Miguel . 2013. [...] R, Edel painting E, Lakesha pérez RS, Lamont SR, Jeannie fair SS. Fast ing Versu s Nonfa sting and Low-D ensit y Lipop rotei n Mere stero l Accur acy. Circu latio n. 2017Mar 18;137 (1):1 0-19. Not Available [facility] (Lab) [address], [place], [address], 11/29/2023 06:06:38 11/28/19 24 11/28/2023 CMP(C OMPRE HENSI VE METAB OLIC PANEL ) sodium 140 mmol/ L 133-14 6 Not Available [facility] (Lab) [address], [place], [address], 11/29/2023 06:06:38 11/28/19 24 11/28/2023 CMP(C OMPRE HENSI VE METAB OLIC PANEL ) potassium 3.7 mmol/ L 3.5-5. 1 Not Available [facility] (Lab) [address], [place], [address], 11/29/2023 06:06:38 11/28/19 24 11/28/2023 CMP(C OMPRE HENSI VE METAB OLIC PANEL ) chloride 102 mmol/ L 98-107 Not Available [facility] (Lab) [address], [place], [address], 11/29/2023 06:06:38 11/28/19 24 11/28/2023 CMP(C OMPRE HENSI VE METAB OLIC PANEL ) carbon dioxide 29 mmol/ L 21-31 Not Available [facility] (Lab) [address], [place], [address], 11/29/2023 06:06:38 11/28/19 24 11/28/2023 CMP(C OMPRE HENSI VE METAB OLIC PANEL ) anion gap 9 mmol/ L 4-13 Not Available [facility] (Lab) [address], [place], [address], 11/29/2023 06:06:38 11/28/19 24 11/28/2023 CMP(C OMPRE HENSI VE METAB OLIC PANEL ) blood urea nitrogen 17 mg/dL 7-25 Not Available [facility] (Lab) [address] [place], [address], 11/29/2023 06:06:38 11/28/19 24 11/28/2023 CMP(C OMPRE HENSI VE METAB OLIC PANEL ) creatinine 0.97 mg/dL 0.60-1 .30 Not Available [facility] (Lab) [address] [place], [address], 11/29/2023 06:06:38 11/28/19 24 11/28/2023 CMP(C OMPRE HENSI VE METAB OLIC PANEL ) egfrcr (CKD-epi 2020) 84 mL/mi n/1.7 3_m2 >=60 Not Available [facility] (Lab) [address], [place], [address], 11/29/2023 06:06:38 11/28/19 24 11/28/2023 CMP(C OMPRE HENSI VE METAB OLIC PANEL ) calcium 10.0 mg/dL 8.3-10 .5 Not Available [facility] (Lab) [address], [place], [address], 11/29/2023 06:06:38 11/28/19 24 11/28/2023 CMP(C OMPRE HENSI VE METAB OLIC PANEL ) glucose 86 mg/dL 70-100 Not Available [facility] (Lab) [address], [place], [address], 11/29/2023 06:06:38 11/28/19 24 11/28/2023 CMP(C OMPRE HENSI VE METAB OLIC PANEL ) protein, total 7.1 g/dL 6.4-8. 3 Not Available [facility] (Lab) [address], [place], [address], 11/29/2023 06:06:38 11/28/19 24 11/28/2023 CMP(C OMPRE HENSI VE METAB OLIC PANEL ) albumin 4.7 g/dL 3.5-5. 0 Not Available [facility] (Lab) [address], [place], [address], 11/29/2023 06:06:38 11/28/19 24 11/28/2023 CMP(C OMPRE HENSI VE METAB OLIC PANEL ) ALT 8 units /L 9-43 low Not Available [facility] (Lab) [address], [place], [address], 11/29/2023 06:06:38 11/28/19 24 11/28/2023 CMP(C OMPRE HENSI VE METAB OLIC PANEL ) alkaline phosphatase 54 units /L 34-104 Not Available [facility] (Lab) [address], [place], [address], 11/29/2023 06:06:38 11/28/19 24 11/28/2023 CMP(C OMPRE HENSI VE METAB OLIC PANEL ) AST 11 units /L 13-39 low Not Available [facility] (Lab) [address], [place], [address], 11/29/2023 06:06:38 11/28/19 24 11/28/2023 CMP(C OMPRE HENSI VE METAB OLIC PANEL ) bilirubin, total 0.7 mg/dL 0.2-1. 2 Not Available [facility] (Lab) [address], [place], [address], 11/29/2023 06:06:38 11/28/19 24 11/28/2023 TSH, REFLE X FREE T4 TSH 0.62 uIU/m L 0.30-5 .33 Not Available [facility] (Lab) [address], [place], [address], 11/29/2023 06:06:39 11/28/19 24 11/28/2023 VITAM IN D, 25-OH (TOTA L D2/D3 ) vitamin D, 25-hydroxy, total 24.2 NG/mL 30.0-1 00.0 low Sugge stive of Defic iency : <20 ng/mL Sugge stive of Insuf ficie ncy: 20-29 ng/mL Sugge stive of Suffi cienc y: 30-10 0 ng/mL Sugge stive of Toxic ity: >150 ng/mL Not Available [facility] (Lab) [address], [place], [address], 11/29/2023 06:06:39 12/11/19 24 12/11/2023 CT/GC AND TRICH OMONA S VAGIN HA (RRNA ), URINE chlamydia trachomatis, PCR Negati ve negati ve Not Available [facility] (Lab) [address], [place], [address], 12/12/2023 13:26:11 12/11/19 24 12/11/2023 CT/GC AND TRICH OMONA S VAGIN HA (RRNA ), URINE neisseria gonorrhoeae, PCR Negati ve negati ve Not Available [facility] (Lab) [address], [place], [address], 12/12/2023 13:26:11 12/11/19 24 12/11/2023 CT/GC AND TRICH OMONA S VAGIN HA (RRNA ), URINE trichomonas vaginalis ribosomal RNA (rrna) Negati ve negati ve Not Available [facility] (Lab) [address], [place], [address], 12/12/2023 13:26:11 12/11/19 24 12/11/2023 pregn lolita test, urine HCG negati ve Not Available [facility] [address], [place], [address], 12/11/2023 15:53:55 01/13/2001/13/2024 CULTU RE: URINE result report SEE RESULT S BELOW Test: Cultu re: Urine Speci men Sourc e: Urine - Clean Catch Speci men Type: Urine Speci men Date: 01/12 1143 Resul t Date: 01/14 0540 Resul t Statu s: Final resul t Abnor mal: No Resul ting Lab: [facility] [address] [facility] [address] Tel: CULTU RE ----- ----- ----- --- No growt h in 1 day (dete ction level of 10,00 0 colon ies / ml.) Not Available [facility] (Lab) [address], [place], [address], 01/15/2024 06:44:17 01/13/2001/13/2024 urina lysis , dipst ick Leukocytes Trace Not Available [facility] [address], [place], [address], 01/13/2024 11:06:11 01/13/2001/13/2024 urina lysis , dipst ick Nitrite Neg Not Available [facility] [address], [place], [address], 01/13/2024 11:06:11 01/13/2001/13/2024 urina lysis , dipst ick Urobilinogen Neg Not Available [facility] [address], [place], [address], 01/13/2024 11:06:11 01/13/2001/13/2024 urina lysis , dipst ick Protein Trace Not Available [facility] [address], [place], [address], 01/13/2024 11:06:11 01/13/2001/13/2024 urina lysis , dipst ick pH 7 Not Available [facility] [address], [place], [address], 01/13/2024 11:06:11 01/13/2001/13/2024 urina lysis , dipst ick Specific [place] 1.010 Not Available [facility] yahaira [address], [place], [address], 01/13/2024 11:06:11 01/13/2001/13/2024 urina lysis , dipst ick Ketone Neg Not Available [facility] [address], [place], [address], 01/13/2024 11:06:11 01/13/2001/13/2024 urina lysis , dipst ick Bilirubin Neg Not Available Dorothea aragon [address], [place], [address], 01/13/2024 11:06:11 01/13/2001/13/2024 urina lysis , dipst ick Glucose Neg Not Available [facility] [address], [place], [address], 01/13/2024 11:06:11 01/13/2001/13/2024 urina lysis , dipst ick Appearance Clear Not Available Rivera banuelos [address], [place], [address], 01/13/2024 11:06:11 01/13/2001/13/2024 urina lysis , dipst ick Color Yellow Not Available [facility] [address], [place], [address], 01/13/2024 11:06:11 01/21/20 24 01/21/2024 WOMEN 'S HEALT H SWAB PLUS, BOLIVAR bacterial vaginosis (bv), tma Negati ve negati ve Not Available [facility] (Lab) [address] [place], [address], 01/24/2024 14:19:14 01/21/20 24 01/21/2024 WOMEN 'S HEALT H SWAB PLUS, BOLIVAR akin species, tma Positi ve negati ve abnormal Not Available [facility] (Lab) [address] [place], [address], 01/24/2024 14:19:14 01/21/20 24 01/21/2024 WOMEN 'S HEALT H SWAB PLUS, BOLIVAR akin glabrata, tma Negati ve negati ve Not Available [facility] (Lab) [address] [place], [address], 01/24/2024 14:19:14 01/21/20 24 01/21/2024 WOMEN 'S HEALT H SWAB PLUS, BOLIVAR trichomonas vaginalis, tma Negati ve negati ve Not Available [facility] (Lab) [address] [place], [address], 01/24/2024 14:19:14 01/21/20 24 01/21/2024 WOMEN 'S HEALT H SWAB PLUS, BOLIVAR chlamydia trachomatis, PCR Negati ve negati ve Not Available [facility] (Lab) [address] [place], [address], 01/24/2024 14:19:14 01/21/20 24 01/21/2024 WOMEN 'S [...] nirmala or negat nirmala statu s. The Jannie da speci es group tests for C. [...] ded in this panel . Not Available [facility] (Lab) [address], [place], [address], 01/24/2024 14:19:14 01/21/20 24 01/21/2024 CULTU RE: HERPE S SIMPL EX VIRUS (HSV) , REFLE X TYPIN G source LESION FLUID Not Available [facility] (Lab) [address], [place], [address], 01/24/2024 14:19:14 01/21/20 24 01/21/2024 CULTU RE: HERPE S SIMPL EX VIRUS (HSV) , REFLE X TYPIN G hsv culture, body fluid NOT ISOLAT ED Perfo rming Organ izati on Infor matio n: Site ID: CB Name: [facility] Addre ss: [address] [place] [address] Dire tor: Martin graham V Millie s Not Available [facility] (Lab) [address], [place], [address], 01/24/2024 14:19:14 04/07/19 25 04/07/2024 CULTU RE: HERPE S SIMPL EX VIRUS (HSV) , REFLE X TYPIN G source VESICL E Not Available [facility] (Lab) [address], [place], [address], 04/11/2024 13:04:09 04/07/19 25 04/07/2024 CULTU RE: HERPE S SIMPL EX VIRUS (HSV) , REFLE X TYPIN G hsv culture, body fluid NOT ISOLAT ED Perfo rming Organ izati on Infor matary n: Site ID: CB Name: [facility] Addre ss: [address] [facility] [place] [address] Dire tor: Martin graham V Millie s Not Available [facility] (Lab) [address], [place], [address], 04/11/2024 13:04:09 04/07/19 25 04/07/2024 pregn lolita test, urine HCG negati ve Not Available [place] [address], [place], [address], 04/07/2024 12:55:11 04/26/1904/26/2024 BHCG, QUANT ITATI VE B-HCG 2.3 mIU/m L 0.0-4. 9 This assay was perfo rmed using [employer] [facility] [employer] ratio n reage nts and test kits. Value s obtai sukumar with other assay metho ds or kits canno t be used inter be eably . Refer ence Range s: Non-p regna nt, preme nopau carson women : 0.0-4 .9 mIU/m L Postm enopa usal women : 0.0-7 .0 mIU/m L More l Pregn lolita: Gesta lolita l Age bHCG Conc. - mIU/m L 3 Weeks 5.8 - 71.7 4 Weeks 9.5 - 750 5 Weeks 217-7 138 6 Weeks 158 - 31,79 5 7 Weeks 3,697 - 162,5 63 8 Weeks 32,06 5 - 149,5 71 9 Weeks 63,80 3 - 151,4 10 10 Weeks 46,50 9 - 186,9 77 12 Weeks 27,83 2 - 210,6 12 14 Weeks 13,95 0 - 62,53 0 15 Weeks 12,03 9 - 70,97 1 16 Weeks 9,040 - 56,45 1 17 Weeks 8,175 - 55,86 8 18 Weeks 8,099 - 58,17 6 Not Available [facility] (Lab) [address], [place], [address], 04/27/2024 04:27:13 04/15/19 24 04/15/2023 US, trans vagin al No observ ation record ed. [email or web address] [facility] [address], [place], [address], 04/15/2023 13:34:21 04/15/19 24 04/15/2023 US, trans vagin al No observ ation record ed. EBONI Conroy [address], [place], [address], 04/21/2023 14:27:14 Result Notes None recorded. Problems Name Problem SNOMED Code Status Onset Date Resolution Date Notes Provider Name and Address Organization Details Recorded Time Pregnanc y 43808306 Completed 202211/08/2022 Kiesha arce [facility] 3 16:58:57 Deliveri es by [id number] Completed r/t breech - Pt uncertai n re or R CS, will decide soon. repeat US 36w. Kiesha arce [facility] 3 16:58:52 Past pregnanc y history of section [id number] Active 2022 Bethanie Yo MD [address], [place], [address], [facility] 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 3 16:58:52 Problem Notes None recorded. Procedures Surgical History Date Name Laterality Status Provider Name and Address Organization Details Recorded Time 05/16/19 24 procedure on gallbladder completed JUANCARLOS Duncan [facility] 04/07/2024 12:04:07 10/26/19 23 section completed Marisol Rodriguez [facility] 12/09/2022 11:03:34 04/02/19 23 Date of Last Pap Smear completed Elizabeth Ravi [facility] 04/24/2022 17:59:26 11/08/19 18 Caesarean Section completed Marisol Rodriguez [facility] 06/20/2022 15:29:55 03/17/19 07 Tonsillectomy completed Marisol Rodriguez [facility] 06/20/2022 15:30:31 Imaging Results Imaging Date Name Status LastModified by Organization Details LastModified Time 04/15/2023 US, transvaginal completed [email or web address] Dorothea aragon [address], [place], [address], 04/15/2023 13:34:21 04/15/2023 US, transvaginal completed EBONI [address] [facility], [place], [address], 04/21/2023 14:27:14 Procedure Notes None recorded. Medical [...] Prescrib ed Elsewher e: No [facility]: ernesto knight DateTime : 01/03/20 [...] Prescrib ed Elsewher e: No Locat ion: Sherylwilda margo [facility] odify By: [email or web address] houseuntfarshad DateTime : 10/22/19 18 02:06:11 PM Not Available Not Available Not Available famotidin e 40 mg tablet TAKE 1 TABLET BY MOUTH DAILY 12/10 completed Not Available Not Available Not Available Compazine 10 mg tablet take 1 tablet by oral route 3 times every day 11/14 completed Prescrib ed Elsewher e: No Locat ion: Tiagocatrachito margo [facility] odify By: aida houseuntfarshad DateTime : 06/06/19 18 05:15:00 PM Not Available Not Available Not Available sumatript an 50 mg tablet take 1 tablet by oral route after onset of migraine ; may repeat after 2 hours if headache returns, not to exceed 200mg in 24hrs 04/02 completed Prescrib ed Elsewher e: No Locat ion: [facility]yl[facility]a margo [facility] odify By: [email or web address] Encounte r DateTime : [...] Prescrib ed Elsewher e: No Locat ion: [facility] odify By: indra Machuca ter DateTime : 08/22/19 18 10:45:00 AM Not Available Not Available Not Available Tagamet HB 200 mg tablet take 1 tablet by oral route 2 times every day 30 minutes before meals 04/02 completed Prescrib ed Elsewher e: No Locat ion: [facility] odify By: indra Machuca ter DateTime : 06/06/19 18 05:15:00 PM Not [...] Prescrib ed Elsewher e: No Locat ion: [facility] By: francois gardner DateTime : 07/26/19 17 02:04:16 PM Not Available Not Available Not [...] ed Elsewher e: No Locat ion: Dorothea margo [facility] odify By: ernesto knight DateTime : 01/07/20 15 03:00:00 PM Not Available Not Available Not Available Monistat 3 4 % (200 mg)-2 %(9 gram)vagi nal pack,pref il appl and cream insert vaginall y for 3 nights 10/21 completed Prescrib ed Elsewher e: No Locat ion: Dorothea margo [facility] odify By: ave quintero DateTime : 09/26/19 18 10:30:07 AM Not Available Not Available Not Available sumatript an (bulk) 08/30 completed Not Available Not Available Not Available Estarylla 0.25 mg-0.035 mg tablet 08/30 completed Not Available Not [...] Updated DateTime 04/16/2023 154.94 cm 37.3 kg/m2 62313.85 g 130 mm[Hg] 76 mm[Hg] Fatmata Singh [facility] 4 15:18:08 Date Recorded Body height Body mass index (BMI) Body weight Systolic blood pressure Diastolic blood pressure Provider Name and Address Organization Details Last Updated DateTime 12/11/2023 154.94 cm 33.4 kg/m2 39853.85 g 122 mm[Hg] 82 mm[Hg] Flor Yvan [facility] 4 15:47:16 Date Recorded Body height Body mass index (BMI) Body weight Systolic blood pressure Diastolic blood pressure Provider Name and Address Organization Details Last Updated DateTime 01/21/2024 154.94 cm 32.3 kg/m2 78572.3 g 125 mm[Hg] 82 mm[Hg] Ivanna Ana Maria [facility] 4 11:55:12 Date Recorded Body height Body mass index (BMI) Body weight Systolic blood pressure Diastolic blood pressure Provider Name and Address Organization Details Last Updated DateTime 04/07/2024 154.94 cm 30.9 kg/m2 85635.99 g 128 mm[Hg] 78 mm[Hg] JUANCARLOS Duncan [facility] 5 12:02:50 Social History Question Answer Notes LastModified by Organizat ion Details LastModified Time Tobacco Smoking Status Never Smoker Elizabeth arce [facility] 04/02/2022 15:32:21 What Is Your Level Of Alcohol Consumption? None Information not available 04/02/2022 If You Are , What Was Your Level Of Alcohol Consumption Prior To ? Occasional [email or web address] Information not available 07/08/2022 Are You Blind [...] Or The Highest Degree You Have Received? 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 No Information not available 04/02/2022 Do You Use Protection During Sex? No Information not available 04/02/2022 Do You Use Your Seat Belt Or Car Seat Routinely? Yes Information not available 04/02/2022 Are You Sexually Active? Yes [email or web address] Information not available 04/07/2024 Do You Have Smoke And Carbon Monoxide Detectors In Your Home? Yes Information not available 04/02/2022 How Much Tobacco Do You Smoke? No Information not available 04/02/2022 Do You Feel Stressed (tense, Restless, Nervous, Or Anxious, Or Unable To Sleep At Night)? [id number] Information not available 04/02/2022 Do You Use Any Illicit Or Recreational Drugs? No Information not available 04/02/2022 Do You Use Sunscreen Routinely? No Information not available 04/02/2022 Has Tobacco Cessation Counseling Been Provided? No [email or web address] Information not available 07/08/2022 Have You Used IV Drugs? No Information not available 04/02/2022 Do You Or Have You Ever Used Any Other Forms Of Tobacco Or Nicotine? No [email or web address] Information not available 07/08/2022 Sex: Unknown Functional Status Question Answer Note LastModified by Organizat ion Details LastModified Time Do you have difficulty walking or climbing stairs? No [email or web address] Information not available 06/20/2022 Are you able to walk? [email or web address] Information not available 04/02/2022 Are you able to care for yourself? Yes [email or web address] Information not available 06/20/2022 Do you have difficulty dressing or bathing? No [email or web address] Information not available 06/20/2022 What is your exercise level? Occasional Information not available 04/02/2022 Mental Status None recorded. Family History Relationship Description Onset Age of this Age Resolved Age Notes LastModified by Organization Details LastModified Time Mother Anemia [email or web address] Not available 10:47:49 Paternal Grandmother Disorder of cardiovascul ar system [email or web address] Not available 2022 14:38:35 Paternal Grandmother Diabetes mellitus [email or web address] Not available 2019 10:48:33 Paternal Grandmother Hypertensive disorder [email or web address] Not available 2019 10:49:01 Maternal Grandfather Disorder of cardiovascul ar system [email or web address] Not available 2022 14:38:35 Maternal Grandfather Hypertensive [...] Code Diagnosis ICD10 Code Diagnosis Note [id number] [facility] [address] [address] 08/13/2019 11:44:01 08/13/2019 14:11:12 Dyspareunia 26759415 N94.10 N93.0 Exam today warrants further evaluation with TVUS & cultures sent. Will schedule at front. Counseled on various possible causes of Dyspareuni a. Time spent in visit is a total of 26 mins with at least 50% of visit consisting of counseling and review of plan of care. Breast lump 42011725 N63 .0 N64.4 Her breast exam warrants further evaluation as very prominent lumps scattered around both breasts; and pain both sides. We agreed to start with breast US & if needed can complete mammogram. Can consider breast specialist moving forward. Pain in pelvis 08279547 R10.2 TVUS being scheduled. [id number] [facility] [address],[place] [address] 08/31/2019 10:59:02 08/31/2019 13:28:42 Postcoital bleeding 37708763 N93.0 Patient is a 19yo white female [...] and review of plan of care.m [id number] Matthew Handy MD [facility] [address],[place] [address] 08/31/2019 11:02:11 08/31/2019 16:56:39 Pain in pelvis 37661395 R10.2 N93.0 [id number] Zelda Vazquez [facility] [address],[place] [address] 12/10/2019 16:49:32 12/10/2019 17:09:53 Leukocytes in urine 258357972 R82.79 Urinary tr act infectious disease 14156633 N39.0 [id number] Matthew Handy MD [facility] [address],[place] [address] 04/02/2022 14:37:48 04/02/2022 15:12:54 Uncertain viability of 367057401 O36.80X0 Z3A.08 [id number] Justine Garcia [facility] [address],[place] [address] 04/02/2022 14:38:27 04/02/2022 16:47:35 test positive 622067871 Z32.01 Risk factors addressed: Tobacco Cessation, Safe [...] cf/sma/nip t. Handouts given and discussed with patient. ildbirth classes recommende d.New OB sheet given.If previous , counseling .Pt verbalizes that she understand s the importance of above instructio ns.All questions were answered.P atient reminded to have annual well woman examinatio n and address preventati ve healthcare . Gynecologi c examination 07755625 Z01.419 Z11.3 Z11.8 [id number] Matthew Handy MD [facility] [address],[place] [address] 04/25/2022 09:12:34 04/25/2022 10:54:30 screening 984000246 Z36.82 [id number] Matthew Handy MD [facility] [address],[place] [address] 04/25/2022 09:19:18 04/25/2022 10:43:20 Routine care 754941296 Z34.81 [id number] Matthew Handy MD [facility] [address],[place] [address] 05/07/2022 12:21:16 05/07/2022 13:01:00 Threatened miscarriage 51910083 O20.0 Z3A.13 [id number] Matthew Handy MD [facility] [address],[place] [address] 05/13/2022 12:31:40 05/13/2022 15:46:07 Cramping pain 975942388 R52 Pt walked into the office and [...] of UTI. Pt verbalized understand ing. bnwheeler, RNAfter pt left urine sample and left dip showed +1 leuks. Sent for UC. L/m for r/c informing pt of this. [id number] Matthew Handy MD [facility] [address],[place] [address] 05/21/2022 12:01:02 05/21/2022 12:58:46 [id number] Matthew Handy MD [facility] [address],[place] [address] 06/13/2022 11:23:15 06/13/2022 12:13:20 Abdominal pain in 625842185 Z3A.19 [id number] Matthew Handy MD [facility] [address],[place] [address] 06/20/2022 13:45:29 06/20/2022 16:11:50 screening 837406540 Z36.3 [id number] Justine Garcia [facility] [address],[place] [address] 06/20/2022 13:53:18 06/25/2022 16:56:55 Routine care 289903630 Z34.92 [id number] Justine Garcia [facility] [address],[place] [address] 07/08/2022 12:32:42 07/09/2022 17:11:05 Right upper quadrant pain 083160132 R10.11 [facility] 97115758 R53.83 [id number] Matthew Handy MD [facility] [address],[place] [address] 07/18/2022 13:48:21 07/18/2022 15:10:01 screening 426137222 Z36.2 Z3A.24 [id number] [facility] [address],[place] [address] 07/18/2022 13:49:37 07/18/2022 15:40:39 Routine care 128454098 Z34.92 [id number] Matthew Handy MD [facility] [address],[place] [address] 08/14/2022 10:57:05 08/14/2022 11:34:57 Uterine size for dates discrepancy 759413506 O26.849 Z3A.27 [id number] [facility] [address],[place] [address] 08/14/2022 10:59:20 08/14/2022 12:14:02 Routine care 337777015 Z34.92 [id number] Bethanie Yo MD [facility] [address],[place] [address] 08/30/2022 10:51:17 09/03/2022 15:03:48 Routine care 177298377 Z34.83 Past pregn lolita history of section 067898934 Z98.890 [id number] [facility] [address],[place] [address] 09/11/2022 17:20:19 09/11/2022 18:28:59 Routine care 574871054 Z34.92 [id number] [facility] [address],[place] [address] 09/25/2022 11:49:21 09/25/2022 12:21:48 Routine care 218047017 Z34.92 [id number] Matthew Handy MD [facility] [address],[place] [address] 10/09/2022 10:56:32 10/09/2022 11:41:37 Uterine size for dates discrepancy 660233043 O26.843 Z3A.35 [id number] Zelda Vazquez CNM [facility] [address],[place] [address] 10/09/2022 10:56:52 10/09/2022 12:16:25 Routine care 624705026 Z34.92 [id number] [facility] [address],[place] [address] 10/18/2022 11:03:12 10/18/2022 11:39:22 Routine care 061290395 Z34.92 [id number] Matthew Handy MD [facility] [address] [address] 11/04/2022 12:33:33 11/05/2022 10:35:26 Postoperative care 078901396 Z48.89 This patient is a 22-year-ol d female who presents for postop follow-up. She is 1 week postop from a delivery. She is recovering normally. Her incision is clean dry and intact. Her mood is good. Her baby is well. She will follow-up in 3 weeks. [id number] Matthew Handy MD [facility] [address],[place] [address] 11/25/2022 14:58:06 11/25/2022 15:46:44 care 089261903 Z39.2 22-year-ol d female who presents for [...] return in 2 weeks for IUD insertion. [id number] BRIONNA Silva [facility] [address],[place] [address] 04/10/2023 14:02:37 04/11/2023 09:28:20 Pain in pelvis 73994426 R10.2 Detailed health hx updated and reviewed [...] questions answered to patient satisfacti on. Vaginitis 16478285 N76.0 [id number] Matthew Handy MD [facility] [address],[place] [address] 04/15/2023 10:57:32 04/15/2023 11:33:10 Pain in pelvis 67344950 R10.2 N93.0 [id number] BRIONNA Silva [facility] [address],[place] [address] 04/16/2023 14:46:16 04/16/2023 16:30:57 Herpes simplex 27053607 B00.9 HSV appearing lesionHSV PCR sentrx for valtrex coursesafe sexual practices discussed Abdominal pain 53546770 R10.9 reviewed updated TVUS - normalgive n [...] counseling and review of plan of care. [id number] Matthew Handy MD [facility] [address],[place] [address] 12/11/2023 15:41:41 12/11/2023 16:19:51 Contraception care management 407043337 Z30.9 This patient is a 23-year-ol d [...] medication prescripti on Vitamin D deficiency 347 63280 E55.9 [id number] KEREN PLUMMER MD [facility] [address],[place] [address] 01/13/2024 10:30:02 01/13/2024 11:17:29 Urinary symptoms 899632636 R39.9 [id number] KEREN PLUMMER MD [facility] [address],[place] [address] 01/21/2024 11:48:18 01/21/2024 12:23:32 Vaginitis 74150896 N76.0 - 2 week duration- unresolved with macrobid, valtrex or diflucan- suspect BV, will treat empiricall y- HSV and vaginitis swabs sent [id number] BRIONNA Silva [facility] [address],[place] [address] 04/07/2024 11:50:08 04/07/2024 13:03:01 Lesion of vulva 446770535 N90.89 HSV appearing lesion notedrx sent for valtrex - r/b/a reviewedvu lvar care guidelines discussedS TI screen declinedco ntraceptiv e options discussed, declined at this time Time spent in visit is a total of 20 mins with at least 50% of visit consisting of counseling and review of plan of care. Contracept ion care management 961735602 Z30.9 Venereal d isease screening 562670494 Z11.3 Health Concerns Section Related Observation LastModified by Organization Detai ls LastModified Time None Recorded Concern Status LastModified by Organization Details LastModified Time None Recorded Advance Directives Directive None Recorded Payers Encounter Date Sequence Insurance Name Policy Number Policy Martínez Covered Member ID Martínez Member ID Guarantor Name 04/16/2023 1 [facility] (MEDICAID HMO) [id number] Guillermina Iban [id number] Guillerminahermelinda Ferrera 12/11/2023 1 [facility] (MEDICAID HMO) [id number] 0003 Guillerminadavid Ferrera [id number] Guillerminadavid Ferrera 01/13/2024 1 [facility] (MEDICAID HMO) [id number] 0003 Guillerminahermelinda Ferrera [id number] Guillerminadavid Ferrera 01/21/2024 1 [facility] (MEDICAID HMO) [id number] 0003 Giullerminahermelinda Ferrera [id number] Guillerminadavid Ferrera 04/07/2024 1 [facility] (MEDICAID HMO) [id number] Guillermina Iban [id number] Guillerminadavid Ferrera Notes Date Note Type Note Provider Name and Address Organization Details Recorded Time 04/16/2023 text/html 23yopresents for u/s f/uHPI as followed: 23yo [id number]/p repeat c/s 3presents for evaluation of abdominal [...] of HSV BRIONNA Silva [address], [place], [address], [place] [facility] 04/16/2023 16:29:56 12/11/2023 text/html This patient [...] of each method. We spent 15 minutes oedm-ie-qbwd. All of this was counseling. Ultimately she [...] mcg Matthew Handy MD [address], [place], [address], [facility] 12/11/2023 16:18:21 01/21/2024 text/html [...] chills. KEREN PLUMMER MD [address], [place], [address], [facility] 01/21/2024 12:18:13 04/07/2024 text/html 24yopresents for evaluation of vulvar lesionnoticed 3 days agosmall/circular/o pen area on outer right labia majoratender to touchhas h/o genital HSV no new partnersLMP : 03/22/2023took Plan B over the weekend BRIONNA Silva [address], [place], [address], [facility] 04/07/2024 13:02:43 OBGyn Episode Ob Episode Information Episode Created Date Number of Fetuses Patient Bloodtype Patient rh Status Prepregnancy Weight lbs Domestic Partner Domestic Partner Phone Father Name Fingernail Technician Status 08/13/19 20 1 CLOSED Fetus Data [...] Domestic Partner Domestic Partner Phone Father Name Fingernail Technician Status 04/25/19 23 1 B Positive 186 CLOSED Fetus Data First Name Last Name Admitted to NICU Weight (g) Sex Living Outcome Pediatric Complications Fetus ID Race Codes Race Delivery Type Juan 3175.14 4 M true Full Term 02504 Repeat Problems Problem Notes B+/TSH low, but T4 normal Problem Name Start Date End Date Resolution Snomed Code Not e Herpes simplex 58282532 h/o H SV 2 - treatment @ 36wks Deliveries by 04 r/t breech - Pt uncertain re or [...] Gestation 0 [email or web address] 04/25/2022 11/08/19 23 0 Pre- Flowsheet Flowsheet Date 04/25/2022 Allen Score Blood [...] Weight in lbs Pre/Post Dialysis Refused Weight 185.988122898673 BP Diastolic BP Location Tested BP Systolic [...] Weight in lbs Pre/Post Dialysis Refused Weight 186.092157855870 BP Diastolic BP Location Tested BP Systolic [...] Weight in lbs Pre/Post Dialysis Refused Weight 189.399126783093 BP Diastolic BP Location Tested BP Systolic [...] Weight in lbs Pre/Post Dialysis Refused Weight 191.476251569200 BP Diastolic BP Location Tested BP Systolic [...] Weight in lbs Pre/Post Dialysis Refused Weight 199.450658142919 BP Diastolic BP Location Tested BP Systolic [...] Weight in lbs Pre/Post Dialysis Refused Weight 200.884642638312 BP Diastolic BP Location Tested BP Systolic [...] Weight in lbs Pre/Post Dialysis Refused Weight 204.368429941309 BP Diastolic BP Location Tested BP Systolic [...] Weight in lbs Pre/Post Dialysis Refused Weight 204.423361964693 BP Diastolic BP Location Tested BP Systolic [...] Weight in lbs Pre/Post Dialysis Refused Weight 209.756417253735 BP Diastolic BP Location Tested BP Systolic [...] Weight in lbs Pre/Post Dialysis Refused Weight 213.708864724217 BP Diastolic BP Location Tested BP Systolic BP Type 78 120 Fetus Heart Rate Present Fetus Movement A Yes Comments OB 40kep4i EDC 11/07/2022, ce rvix almost 60/-2, precautions reviewed, still planning , f/u one week Flowsheet Date 11/04/2022 Allen Score Blood Edema Fundus Height Fundus Units Glucose Ketones Leukocytes Nitrite Labor Signs Protein Cervic Dilation Cervic Effacement Cervic Station Type Weight in lbs Pre/Post Dialysis Refused Weight 194.897583905416 BP Diastolic BP Location Tested BP Systolic [...] Estim ated Date of Delivery false Thalassemia (Persian, Upper Sorbian, Mediterranean, Or Background): MCV < 80 false Neural Tube Defect (Meningomyelocele, Spina Bifi da, Or Anencephaly) false Congenital Heart Defect false Down Syndrome false Marcio-Sachs (eg, Mandaeism, Cajun, Kyrgyz-Noxubee) f alse Marychuy Disease false Sickle Cell Disease Or Trait () false Hemophilia Or Other Blood Disorders false Muscular Dystrophy false Cystic Fibrosis false Ta[place]'s Chorea false Intellectual Disability/Autism false If Yes, [...] Domestic Partner Domestic Partner Phone Father Name Fingernail Technician Status 04/25/19 23 1 CLOSED Fetus Data First Name Last Name Admitted to NICU Weight (g) Sex Living Outcome Pediatric Complications Fetus ID Race Codes Race Delivery Type , Spontane ous [id number] Chon Calculation Initial Chon Date Initial Exam [...]
[2024-07-18 10:20] VITALS: BP 130/66; PULSE 77; RESP 18; TEMP 36.2; O2SAT 100
--- NOTE | 2024-07-18 11:32 | ED.URI ---
HPI - URI/Sore Throat General Chief Complaint: Upper Respiratory Infection Stated Complaint: sinus prob, ear inf Time Seen by Provider: 07/18/24 10:50 Source: patient and RN notes reviewed Mode of arrival: ambulatory Limitations: no limitations History of Present Illness HPI Narrative: 24-year-old female presents Express Care complaining of upper respiratory symptoms for approximately 9 days. Patient says she has congestion, sinus pressure, ear pain, nausea, productive cough. Patient thought was this sinuses than the last couple days her symptoms significantly got worse. Patient denies any sore throat, chest pain, difficulty breathing, fevers, body aches, chills, vomiting, diarrhea. Related Data Home Medications ?Medication ?Instructions ?Recorded ?Confirmed ?Last Taken ?Type ferrous sulfate 325 mg (65 mg 325 mg PO DAILY 02/01/21 06/18/23 06/17/23 History iron) tablet (Feosol) Allergies Allergy/AdvReac Type Severity Reaction Status Date / Time No Known Allergies Allergy Verified 07/18/24 10:25 Review of Systems Review of Systems: CONSTITUTIONAL: Denies fever, chills, or sweats. EYES: Denies visual changes, redness, or discharge. ENT: Denies rhinorrhea, sore throat. Positive for congestion, sinus pressure, and otalgia. CARDIOVASCULAR: Denies chest pain, palpitations, or edema. RESPIRATORY: Positive for cough. Negative for dyspnea. GASTROINTESTINAL: Denies abdominal pain, nausea, vomiting, or diarrhea. GENITOURINARY: Denies dysuria or hematuria. SKIN: Denies rash or itching. MUSCULOSKELETAL: Denies back pain, joint pain, or myalgia. NEUROLOGIC: Denies headache, numbness, or weakness. PSYCHIATRIC: Denies anxiety or depression. All other systems reviewed are negative, except as documented in HPI. [facility] Past Medical History Medical History Gastritis Abdominal pain HIDA scan on 05/23/2023 reveals no gallbladder activity consistent with acalculous cholecystitis. BMI 34.0-34.9,adult Obesity (BMI 30.0-34.9) Cholelithiasis Iron deficiency anemia, unspecified delivery delivered Term False labor Encounter to establish care Tobacco abuse BMI 27.0-27.9,adult Bruising tendency Anemia Surgical History Surgical History Previous section Social History Social History Smoking packs per day: 0.5 Smoking cigarettes per day: 10.0 Years smoked: 1 Smoking pack-years: 0.50 Smoking status: Former smoker Tobacco type: cigarettes Additional smoking assessment comments: FORMER SOCIAL SMOKER Alcohol intake: never Substance use: never Substance use type: does not use Lack of Transportation: No Lack of Food: Never True Current Housing: I Have Housing Concerned About Future Housing: No Difficulty Paying Gas/Electric Bills: No Difficulty Paying for Meds: No Currently Unemployed: No Education: High School Diploma/GED Difficulty w/ Childcare or Family Care: No Living arrangements: with family Spiritual care concerns: No Comments At the time of my signature, I reviewed and agree with the nursing past medical, surgical, social, and family history. There is no relevant family history pertinent to the patient complaint. Exam Narrative: GENERAL: This is a well-nourished, well-developed adult, in no apparent distress. They are non ill-appearing, nontoxic appearing. HEAD: normocephalic, atraumatic. EYES: Sclera clear/white. Conjunctiva normal. Vision is grossly intact. Extraocular movements intact EARS: External ears normal, auditory canals clear and without drainage, TMs normal without perforation. Hearing grossly intact. NOSE: External nose normal with no obvious nasal discharge, nasal turbinates erythematous bilaterally, no rhinorrhea. Sinus tenderness to palpation of the frontal maxillary sinuses. THROAT: Mucous membranes moist, posterior pharynx clear, without erythema or swelling. Uvula midline. Postnasal drip present. NECK: Neck supple, non-tender without lymphadenopathy, masses or thyromegaly. CARDIOVASCULAR: Regular rate and rhythm without murmurs, gallops, or rubs. RESPIRATORY: Clear to auscultation. Breath sounds equal bilaterally. No wheezes, rales, or rhonchi. SKIN: warm, Dry, intact with no suspicious lesions or rash, good texture and turgor. NEURO: awake, alert, and oriented to person, place and time. There were no obvious focal neurologic abnormalities. EXTREMITIES: No joint tenderness, effusion, or edema noted. BACK: Nontender without deformity. No CVA tenderness. Course Course Emergency Course: Portions of this record may have been created with voice recognition software Level of Care: Express Care Visit Vital Signs Vital signs: Vital Signs Temperature 97.2 F L 07/18/24 10:20 Pulse Rate 77 07/18/24 10:20 Respiratory Rate 18 07/18/24 10:20 Blood Pressure 130/66 07/18/24 10:20 Pulse Oximetry 100 07/18/24 10:20 Oxygen Delivery Room Air 07/18/24 10:20 Temperature 97.2 F L 07/18/24 10:20 Pulse Rate 77 07/18/24 10:20 Respiratory Rate 18 07/18/24 10:20 Blood Pressure 130/66 07/18/24 10:20 Pulse Oximetry 100 07/18/24 10:20 Oxygen Delivery Room Air 07/18/24 10:20 Reviewed MDM - URI/Sore Throat MDM Narrative Medical decision making narrative: Given patient's length of symptoms is likely she has developed a bacterial sinusitis. Will treat empirically with Augmentin. Discussed physical exam findings. Advised supportive measures and signs/symptoms to go to the ER. Pt is appropriate for outpt treatment and f/u. Differential Diagnosis Differential diagnosis: Likely upper respiratory infection, otitis media and sinusitis Critical Care Time Critical Care Time Critical Care Time: No Discharge Plan Discharge Clinical Impression: Sinusitis Qualifiers: Sinusitis location: unspecified location Chronicity: acute Recurrence: non-recurrent Qualified Code(s): J01.90 - Acute sinusitis, unspecified Patient Disposition: Home Condition: Stable Instructions: Antibiotic Form, Sinusitis (ED) Additional Instructions: Take the antibiotics as directed and complete the course even if you start to feel better. You may use a Neti pot saline rinse 3 times a day with lukewarm distilled water. Continue to take Tylenol or Motrin for pain. Use a humidifier or vaporizer at night. Drink plenty of water. 8-10 glasses per day. Use flonase 2 times per day for 5 days then as needed Take mucinex 2 times per day and be sure to take with 8oz of water. Follow up with Primary provider in 3-5 days. If your symptoms worsen, you developed breathing problems or any other concerns please go to the ER immediately. Patient Language: Maori Prescriptions: New amoxicillin-pot clavulanate 875-125 mg tablet 1 tablet PO Q12H 7 Days Qty: 14 0RF No Action ferrous sulfate [Feosol] 325 mg (65 mg iron) tablet 325 mg PO DAILY lansoprazole [Prevacid] 30 mg capsule,delayed release(DR/EC) 30 mg PO DAILY Qty: 30 5RF ketorolac 10 mg tablet 10 mg PO Q6H 4 Days Qty: 16 0RF oxycodone-acetaminophen 5-325 mg tablet 0.5 - 1 tablet PO Q6H PRN (Reason: pain) Qty: 10 0RF Follow-up/Referrals: PHYSICIAN,[employer] [Primary Care Provider] - Time of Disposition: 11:05
== END 2024-07-18 11:07 | disposition home or self-care (01) ==
DX: J01.90 Acute sinusitis, unspecified (principal); Z87.891 Personal history of nicotine dependence; E66.9 Obesity, unspecified; Z68.27 Body mass index [BMI] 27.0-27.9, adult; D50.9 Iron deficiency anemia, unspecified
CPT/HCPCS: 99213; G0463

== ENCOUNTER 2024-11-05 10:10 | Emergency (ER) | payer OTHER, SELFPAY ==
--- NOTE | 2024-11-05 10:10 | ED_ITS ---
HPI - URI/Sore Throat General Chief Complaint: Upper Respiratory Infection Stated Complaint: Body Aches,Sinus,Headache Time Seen by Provider: 11/05/24 10:10 Source: patient Mode of arrival: ambulatory Limitations: no limitations History of Present Illness HPI Narrative: Mable is a 24-year-old female patient presenting to the clinic today with complaints of body aches, sinus congestion, and headache x1 day. She reports no known fevers or chills. States she took ibuprofen last night for the body aches. Denies any chest pain or shortness of breath. Thinks she may have COVID. 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 Related Data Home Medications ?Medication ?Instructions ?Recorded ?Confirmed ?Last Taken ?Type ferrous sulfate 325 mg (65 mg 325 mg PO DAILY 02/01/21 06/18/23 06/17/23 History iron) tablet (Feosol) Allergies Allergy/AdvReac Type Severity Reaction Status Date / Time No Known Allergies Allergy Verified 07/18/24 10:25 Review of Systems Review of Systems: Pertinent positives per HPI. Patient denies any fever, chills, rash, headache, visual changes, dizziness, cough, shortness of breath, chest pain, palpitations, nausea, vomiting, diarrhea, constipation, abdominal pain, or any urinary issues. PENDING SALE TO [facility] Past Medical History Medical History Gastritis Abdominal pain HIDA scan on 05/23/2023 reveals no gallbladder activity consistent with acalculous cholecystitis. BMI 34.0-34.9,adult Obesity (BMI 30.0-34.9) Cholelithiasis Iron deficiency anemia, unspecified delivery delivered Term False labor Encounter to establish care Tobacco abuse BMI 27.0-27.9,adult Bruising tendency Anemia Surgical History Surgical History Previous section Social History Social History Smoking packs per day: 0.5 Smoking cigarettes per day: 10.0 Years smoked: 1 Smoking pack-years: 0.50 Smoking status: Former smoker Tobacco type: cigarettes Additional smoking assessment comments: FORMER SOCIAL SMOKER Alcohol intake: never Substance use: never Substance use type: does not use Lack of Transportation: No Lack of Food: Never True Current Housing: I Have Housing Concerned About Future Housing: No Difficulty Paying Gas/Electric Bills: No Difficulty Paying for Meds: No Currently Unemployed: No Education: High School Diploma/GED Difficulty w/ Childcare or Family Care: No Living arrangements: with family Spiritual care concerns: No Comments At the time of my signature, I reviewed and agree with the nursing past medical, surgical, social, and family history. There is no relevant family history pertinent to the patient complaint. Exam Narrative: General: Well-developed, well nourished, in no apparent distress Head: Normocephalic, atraumatic Eyes: Pupils equally round and reactive to light bilaterally, EOM intact, sclera and conjunctive clear, no discharge, lids normal Ears: TMs intact and clear, ear canals clear, no drainage, grossly hearing normal. Nose: Nares patent, clear nasal discharge, no inflammation, no sinus tenderness. Mouth: Oral pharynx without lesions or masses, good dentition, MMM. Postnasal drip Neck: Supple, trachea midline, no enlargement of anterior or posterior cervical nodes, no thyroid masses or goiter palpable. Cardio: Regular rate and rhythm, s1 and s2 normal, no murmur appreciated. Resp: Clear to auscultation bilaterally, no rhonchi, rales, wheezing or rubs Course Course Emergency Course: Portions of this record may have been created with voice recognition software. Level of Care: Express Care Visit Vital Signs Vital signs: Vital Signs Temperature 36.3 C L 11/05/24 10:22 Pulse Rate 93 11/05/24 10:22 Respiratory Rate 18 11/05/24 10:22 Blood Pressure 122/84 11/05/24 10:22 Pulse Oximetry 98 11/05/24 10:22 Oxygen Delivery Room Air 11/05/24 10:22 Temperature 36.3 C L 11/05/24 10:22 Pulse Rate 93 11/05/24 10:22 Respiratory Rate 18 11/05/24 10:22 Blood Pressure 122/84 11/05/24 10:22 Pulse Oximetry 98 11/05/24 10:22 Oxygen Delivery Room Air 11/05/24 10:22 Vital signs reviewed MDM - URI/Sore Throat MDM Narrative Medical decision making narrative: At the time of visit patient is resting comfortably on the exam table. Patient appears to be nontoxic. Complaints of body aches, sinus congestion, and headache x1 day. She reports no known fevers or chills. States she took ibuprofen last night for the body aches. Denies any chest pain or shortness of breath. Thinks she may have COVID. 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 COVID and influenza testing was ordered. Labs: COVID and influenza testing was performed. COVID test was positive. Influenza testing was negative. Plan: Patient has COVID. Work note was given. Supportive measures were discussed with the patient and they voiced understanding discharge instructions and agrees to treatment plan. Return precautions reviewed Differential Diagnosis Differential diagnosis: Likely upper respiratory infection, otitis media, sinusitis, viral infection, bronchitis, influenza, pharyngitis and other (COVID) Discharge Plan Discharge Clinical Impression: COVID-19 Patient Disposition: Home Condition: Stable Instructions: Antibiotic Form, How to Recover from COVID-19 at Home (ED) Additional Instructions: COVID testing was positive in the clinic today. Influenza testing was negative. May take DayQuil/NyQuil for cold/flu symptoms. Increase fluids and stay well hydrated May take Tylenol or motrin as directed on bottle for pain/fever May use Flonase 1 spray in each nare daily May take OTC antihistamines such as Zyrtec or Claritin daily as directed on bottle May apply Vicks vapor rub to chest to open sinuses Sinus rinses for congestion Cepacol spray, cough drops, throat lozenges, warm tea with honey/lemon, gargle salt water to soothe throat BRAT diet for diarrhea Clear liquids x 24 hours then advance as tolerated for nausea/vomiting Go to the ED if you develop a worsening in your condition- high fever not controlled by Tylenol or Motrin, dehydration, weakness, lethargy, shortness of breath, or chest pain. Follow up with your PCP in 3-5 days if symptoms persist. Patient Language: Pashto Prescriptions: No Action ferrous sulfate [Feosol] 325 mg (65 mg iron) tablet 325 mg PO DAILY Follow-up/Referrals: UNKNOWN,DOCTOR [Non-Staff] Stand Alone Forms: Work/School Release IP Time of Disposition: 10:27 Quality NIHSS Nursing Documentation ED NIHSS nursing documentation: reviewed/agree
[2024-11-05 10:22] VITALS: BP 122/84; PULSE 93; RESP 18; TEMP 36.3; O2SAT 98
[2024-11-05 10:30] LABS: EDCOVIDSCREEN Positive (Negative); EDINFLUASCREEN Negative (Negative); EDINFLUBSCREEN Negative (Negative)
== END 2024-11-05 10:33 | disposition home or self-care (01) ==
LOC: EXPBETH 10:15
PROVIDERS: Emergency Provider Nurse Practitioner Family
DX: U07.1 COVID-19 (principal); Z87.891 Personal history of nicotine dependence; D50.9 Iron deficiency anemia, unspecified; E66.9 Obesity, unspecified; Z68.29 Body mass index [BMI] 29.0-29.9, adult
CPT/HCPCS: 87426; 87804; 99212; G0463